=== PATIENT | female | born 1985 | race Caucasian/White ===

== ENCOUNTER 2017-01-10 16:23 | Emergency (ER) | payer OTHER ==
[~2017-01-10] VITALS: Ht 162.6 cm; Wt 49.0 kg
[2017-01-10] MEDS ORDERED: LORazepam Inj 2mg/ml 1ml IV ONE (17:00)
[2017-01-10 17:05] VITALS: BP 123/86
[2017-01-10] MEDS ORDERED: LORazepam Inj 2mg/ml 1ml IM ONE (17:30)
[2017-01-10] MEDS ORDERED: ATIVAN1 MG ORAL (17:37)
[2017-01-10] MEDS ORDERED: ZOFRAN ODT4 MG ORAL (17:37)
[2017-01-10 18:06] VITALS: BP 120/78
--- NOTE | 2017-01-10 18:09 | Emergency Room Report ---
History of Present Illness General Chief Complaint: General Complaint Source: Patient Present Illness HPI 31-year-old female presents ED complaining of feeling and states she is having withdrawal symptoms. States that she is a recovering alcoholic she drank alcohol for the last several days. Patient states she feels depressed because of the bad break up. Denies any suicidal or homicidal ideation. Admits to alcohol use only. Denies any drug use. Patient states she also feels very anxious. Normally takes Prozac and trazodone. No other aggravating or relieving factors. Denies any other associated symptoms Allergies: Coded Allergies: AMOXICILLIN (Verified Allergy, Unknown, 01/10/17) PENICILLINS (Verified Allergy, Unknown, 01/10/17) Patient History Past Medical History: psych hx Past Surgical History: none Pertinent Family History: none Social History: Reports: alcohol use, Denies: smoking, drug use Last Menstrual Period: 12/24/16 Now: No Immunizations: UTD Reviewed Nursing Documentation: PMH: Agreed, PSxH: Agreed Nursing Documentation-PMH Hx Cardiac Problems: No Hx Hypertension: No Hx Pacemaker: No Hx Asthma: No Hx COPD: No Hx Diabetes: No Hx Cancer: No Hx Gastrointestinal Problems: No Hx Dialysis: No History Of Psychiatric Problem: Yes - anxiety, panic disorder Hx Neurological Problems: No Hx Cerebrovascular Accident: No Hx Seizures: No Review of Systems All Other Systems: negative except mentioned in HPI Physical Exam Vital Signs Date Time Temp Pulse Resp B/P (MAP) Pulse Ox O2 Delivery O2 Flow Rate FiO2 01/10/17 16:32 98.1 98 22 123/86 100 Sp02 EP Interpretation: reviewed, normal General Appearance: no apparent distress, alert, GCS 15, non-toxic Head: normocephalic, atraumatic Eyes: bilateral eye normal inspection, bilateral eye PERRL ENT: hearing grossly normal, normal pharynx, no angioedema, normal voice Neck: full range of motion, supple/symm/no masses Respiratory: chest non-tender, lungs clear, normal breath sounds, speaking full sentences Cardiovascular #1: regular rate, rhythm, no edema Cardiovascular #2: 2+ carotid (R), 2+ carotid (L), 2+ radial (R), 2+ radial (L) , 2+ dorsalis pedis (R), 2+ dorsalis pedis (L) Gastrointestinal: normal bowel sounds, non tender, soft, non-distended, no guarding, no rebound Rectal: deferred Genitourinary: normal inspection, no CVA tenderness Musculoskeletal: back normal, gait/station normal, normal range of motion, non- tender Neurologic: alert, oriented x3, responsive, motor strength/tone normal, sensory intact, speech normal Psychiatric: judgement/insight normal, memory normal, depressed affect, anxious Reflexes: 3+ bicep (R), 3+ bicep (L), 3+ tricep (R), 3+ tricep (L), 3+ knee (R) , 3+ knee (L) Skin: normal color, no rash, warm/dry, well hydrated Lymphatic: no adenopathy Medical Decision Making Diagnostic Impression: Primary Impression: Alcohol withdrawal Qualified Codes: F10.239 - Alcohol dependence with withdrawal, unspecified Additional Impression: Anxiety ER Course Hospital Course 31-year-old female presents ED complaining of anxiety, shaking. Chronic history of alcohol use Differential diagnoses include: Alcohol intoxication, drug abuse, opioid withdrawal, alcohol withdrawal, dehydration, drug seeking behavior Clinical course Patient placed on stretcher. On registered public surveyor. After initial history and physical I ordered labs, IV fluids, Ativan Patient then refused IV access. Agreed to IM Ativan and ODT zofran On reassessment patient states she feels better. No signs of DTs or withdrawal. Vital stable i. I feel this is a highly complex case requiring extensive working including EKG/Rhythm strip, Xray/CT/US, Blood/urine lab work, repeat exams while in ED, and administration of strong opiates/narcotics for pain control, admission to hospital or close patient follow up. Diagnosis - alcohol withdrawal, anxiety Stable and discharged to home with prescription for ativan, zofran. Followup with PMD. Return to ED if symptoms recur or worsen Last Vital Signs Date Time Temp Pulse Resp B/P (MAP) Pulse Ox O2 Delivery O2 Flow Rate FiO2 01/10/17 17:05 98.1 22 123/86 100 01/10/17 16:32 98 Status: improved Disposition: HOME, SELF-CARE Condition: Stable Scripts Ondansetron Odt* (ZOFRAN ODT*) 4 Mg Tab.rapdis 4 MG ORAL Q6H Y for Nausea & Vomiting, #30 TAB 0 Refills Prov: WILFREDO BAIN M.D. 01/10/17 Lorazepam* (ATIVAN*) 1 Mg Tablet 1 MG ORAL THREE TIMES A DAY, #10 TAB Prov: WILFREDO BAIN M.D. 01/10/17 Patient Instructions: Alcohol Withdrawal WILFREDO BAIN M.D. Jan 10, 2017 18:09
--- NOTE | 2017-01-11 15:29 | Cardiology Report ---
APPROVED REPORT EKG Measurement Heart [id number] [place] [id number] Sinus tachycardia with short AL Right atrial enlargement Borderline ECG
== END 2017-01-10 17:50 | disposition home or self-care (01) ==
LOC: EMR 16:51
DX: F10.239 Alcohol dependence with withdrawal, unspecified (principal); F41.9 Anxiety disorder, unspecified; Z88.0 Allergy status to penicillin
CPT/HCPCS: 80307; 81025; 93005; 96372; 99284

== ENCOUNTER 2017-01-20 09:36 | Emergency (ER) | payer OTHER ==
[~2017-01-20] VITALS: Ht 162.6 cm; Wt 49.9 kg
[~2017-01-20 09:36] MED LIST: ATIVAN1 MG ORAL; ZOFRAN ODT4 MG ORAL
[2017-01-20 09:49] VITALS: BP 129/60
--- NOTE | 2017-01-20 09:57 | Emergency Room Report ---
History of Present Illness General Chief Complaint: General Complaint Source: Patient Present Illness HPI Patient is a 31-year-old female presented after increased palpitations and anxiety. Patient had prior history of alcohol abuse. She reports having taken and a half a milligram of Ativan without improvement. Patient states that she had prior history of alcohol abuse and had her last drink yesterday approximately 3 PM Allergies: Coded Allergies: AMOXICILLIN (Verified Allergy, Unknown, 01/10/17) PENICILLINS (Verified Allergy, Unknown, 01/10/17) Patient History Reviewed Nursing Documentation: PMH: Agreed, PSxH: Agreed Nursing Documentation-PMH Hx Cardiac Problems: No Hx Hypertension: No Hx Pacemaker: No Hx Asthma: No Hx COPD: No Hx Diabetes: No Hx Cancer: No Hx Gastrointestinal Problems: No Hx Dialysis: No History Of Psychiatric Problem: Yes - ANXIETY Hx Neurological Problems: No Hx Cerebrovascular Accident: No Hx Seizures: No Review of Systems All Other Systems: negative except mentioned in HPI Physical Exam Vital Signs Date Time Temp Pulse Resp B/P (MAP) Pulse Ox O2 Delivery O2 Flow Rate FiO2 01/20/17 09:42 97.9 129 20 122/73 99 Room Air Sp02 EP Interpretation: reviewed, normal General Appearance: normal inspection, well appearing, no apparent distress, alert, GCS 15 Head: atraumatic ENT: normal ENT inspection, hearing grossly normal, normal voice Neck: normal inspection, full range of motion, supple, no bony tend Respiratory: normal inspection, lungs clear, normal breath sounds, no respiratory distress, no retraction, no wheezing Cardiovascular #1: no edema, tachycardia Gastrointestinal: normal inspection, normal bowel sounds, non tender, soft, no guarding, no hernia Genitourinary: no CVA tenderness Musculoskeletal: normal inspection, back normal, normal range of motion Neurologic: normal inspection, alert, oriented x3, responsive, raveler III-XII nml as tested, speech normal, other - tremulousness Psychiatric: normal inspection, judgement/insight normal, mood/affect normal Skin: normal inspection, normal color, no rash Medical Decision Making Diagnostic Impression: Primary Impression: Alcohol withdrawal ER Course Patient presented for anxiety. Differential diagnosis included was not limited to arrhythmia, PVCs, SVT, V. tach, pulmonary embolism, alcohol withdrawal among others.Because of complexity of patient's case laboratory testing and imaging studies were ordered. The patient was noted to have the appearance of alcohol withdrawal. Patient was given IM Ativan. The patient was noted to have improvement in her symptoms. Patient stated she wanted to leave despite tachycardia. The patient stated that she needed to go to work. The patient was advised to not drive or operate heavy machinery. The patient is advised to follow up with primary care doctor in 1-2 days. Patient is advised to return if any worsening condition or if any changes in status that are concerning. Last Vital Signs Date Time Temp Pulse Resp B/P (MAP) Pulse Ox O2 Delivery O2 Flow Rate FiO2 01/20/17 09:49 97.9 134 18 129/60 100 Room Air Status: improved Disposition: HOME, SELF-CARE Condition: Stable Scripts Chlordiazepoxide Hcl* (LIBRIUM*) 10 Mg Capsule 10 MG ORAL THREE TIMES A DAY, #15 CAP 0 Refills Prov: Joe Roy 01/20/17 Joe Roy Jan 20, 2017 09:57
[2017-01-20] MEDS ORDERED: LORazepam Inj 2mg/ml 1ml IV ONE (10:00)
[2017-01-20] MEDS ORDERED: LORazepam Inj 2mg/ml 1ml IM ONE (10:00)
[2017-01-20] MEDS ORDERED: Thiamine HCl 100 MG in D5W 55 ML IVPB ONE (10:00)
[2017-01-20 10:22] LABS: APPEARANCE,URINE CLOUDY; KETONES,URINE 4+ (NEGATIVE); LEUKOCYTE ESTERASE ,URINE NEGATIVE (NEGATIVE); NITRITE,URINE NEGATIVE (NEGATIVE); PH,URINE 6 (4.5-8.0); PROTEIN,URINE 2+ (NEGATIVE); UROBILINOGEN,URINE NORMAL MG/DL (0.0-1.0)
[2017-01-20 10:27] LABS: BASOPHILS % (AUTO) 1.7 % (0.0-2.0); EOSINOPHILS % (AUTO) 0.1 % (0.0-3.0); LYMPHOCYTES % (AUTO) 16.4 % (20.0-45.0); MEAN CORPUSCULAR HEMOGLOBIN 32.9 PG (27.0-31.0); MEAN CORPUSCULAR HGB CONC 33.5 G/DL (32.0-36.0); MEAN CORPUSCULAR VOLUME 98 FL (80-99); MEAN PLATELET VOLUME 5.1 FL (6.5-10.1); MONOCYTES % (AUTO) 8.8 % (1.0-10.0); NEUTROPHILS % (AUTO) 72.9 % (45.0-75.0); PLATELET COUNT 324 K/UL (150-450); RED BLOOD COUNT 4.84 M/UL (4.20-5.40); RED CELL DISTRIBUTION WIDTH 11.3 % (11.6-14.8); WHITE BLOOD COUNT 10.7 K/UL (4.8-10.8)
[2017-01-20] MEDS ORDERED: LIBRIUM10 MG ORAL (10:30)
[2017-01-20 10:32] LABS: SQUAMOUS EPITHELIAL CELL,UR MODERATE /LPF (NONE/OCC); WBC,URINE 0-2 /HPF (0 - 2)
[2017-01-20 10:33] LABS: BACTERIA,URINE OCCASIONAL /HPF; MUCUS,URINE MODERATE /LPF (NONE/OCC)
[2017-01-20 10:34] VITALS: BP 118/67
[2017-01-20 10:39] LABS: ANION GAP 19 mmol/L (5-15); CALCIUM 8.8 MG/DL (8.5-10.1); CARBON DIOXIDE 21 MMOL/L (21-32); CHLORIDE 97 MMOL/L (98-107); GLOMERULAR FILTRATION RATE > 60 mL/min (>60); POTASSIUM 3.7 MMOL/L (3.5-5.1); SODIUM 136 MMOL/L (136-145)
[2017-01-20 10:45] LABS: ALANINE AMINOTRANSFERASE 54 U/L (12-78); ALBUMIN/GLOBULIN RATIO 1.2 (1.0-2.7); ASPARTATE AMINO TRANSFERASE 60 U/L (15-37); TOTAL PROTEIN 8.1 G/DL (6.4-8.2)
--- NOTE | 2017-01-22 17:18 | Cardiology Report ---
APPROVED REPORT EKG Measurement Heart [id number] [place] [id number] Sinus tachycardia Otherwise normal ECG
== END 2017-01-20 10:52 | disposition home or self-care (01) ==
LOC: EMR 10:35
DX: F10.239 Alcohol dependence with withdrawal, unspecified (principal); R00.2 Palpitations; F41.9 Anxiety disorder, unspecified; Z88.0 Allergy status to penicillin
CPT/HCPCS: 36415; 80053; 81003; 81025; 85025; 93005; 96372; 99283

== ENCOUNTER 2017-04-20 10:00 | Emergency (ER) | payer OTHER ==
[~2017-04-20] VITALS: Ht 162.6 cm; Wt 47.6 kg
[2017-04-20 10:00] VITALS: BP 124/86
[~2017-04-20 10:00] MED LIST changes: +LIBRIUM10 MG ORAL
[2017-04-20] MEDS ORDERED: LORazepam Inj 2mg/ml 1ml IV ONE (10:15)
[2017-04-20] MEDS ORDERED: Thiamine HCl 100 MG in D5W 55 ML IVPB ONE (10:15)
--- NOTE | 2017-04-20 10:17 | Emergency Room Report ---
History of Present Illness General Chief Complaint: General Complaint Source: Patient Present Illness HPI Patient is a 31-year-old female presented after increased anxiety and palpitations. Patient was recent heavy alcohol use. She states that she had previously been had taking multiple psychiatric medications. She reported some epigastric abdominal pain. She denies any fever. She reported having trace amount of hematemesis. Allergies: Coded Allergies: AMOXICILLIN (Verified Allergy, Unknown, 01/10/17) PENICILLINS (Verified Allergy, Unknown, 01/10/17) Patient History Past Medical History: see triage record Now: No Reviewed Nursing Documentation: PMH: Agreed, PSxH: Agreed Nursing Documentation-PMH Hx Cardiac Problems: No Hx Hypertension: No Hx Pacemaker: No Hx Asthma: No Hx COPD: No Hx Diabetes: No Hx Cancer: No Hx Gastrointestinal Problems: No Hx Dialysis: No History Of Psychiatric Problem: Yes - anxiety Hx Neurological Problems: No Hx Cerebrovascular Accident: No Hx Seizures: No Review of Systems All Other Systems: negative except mentioned in HPI Physical Exam Vital Signs Date Time Temp Pulse Resp B/P (MAP) Pulse Ox O2 Delivery O2 Flow Rate FiO2 04/20/17 09:54 98.0 125 20 112/82 99 Room Air 98.1 Sp02 EP Interpretation: reviewed, normal General Appearance: normal inspection, well appearing, no apparent distress, alert, GCS 15 Head: atraumatic ENT: normal ENT inspection, hearing grossly normal, normal voice Neck: normal inspection, full range of motion, supple, no bony tend Respiratory: normal inspection, lungs clear, normal breath sounds, no respiratory distress, no retraction, no wheezing Cardiovascular #1: regular rate, rhythm, no edema Gastrointestinal: normal inspection, normal bowel sounds, non tender, soft, no guarding, no hernia Genitourinary: no CVA tenderness Musculoskeletal: normal inspection, back normal, normal range of motion Neurologic: normal inspection, alert, oriented x3, responsive, food sampler III-XII nml as tested, speech normal Psychiatric: normal inspection, judgement/insight normal, mood/affect normal Skin: normal inspection, normal color, no rash Medical Decision Making Diagnostic Impression: Primary Impression: Alcohol withdrawal ER Course Patient presented for abdominal pain. Differential diagnoses included ischemic bowel, appendicitis, perforated viscus, abdominal aortic aneurysm, inferior myocardial infarction, viral gastroenteritis. Because of complexity of patient' s case laboratory testing and imaging studies were ordered.Laboratory studies are notable for mildly elevated white blood count. Patient was noted to be negative for alcohol. Patient given IV Ativan as well as oral Ativan with improvement. The patient is advised to follow up with primary care doctor in 1 -2 days. Patient is advised to return if any worsening condition or if any changes in status that are concerning. This report is dictated with [employer] software which may occasionally lead to discrepancies related to use of this software. Labs Test 04/20/17 10:45 04/20/17 14:00 White Blood Count 14.6 K/UL (4.8-10.8) Red Blood Count 4.89 M/UL (4.20-5.40) Hemoglobin 16.2 G/DL (12.0-16.0) Hematocrit 46.9 % (37.0-47.0) Mean Corpuscular Volume 96 FL (80-99) Mean Corpuscular Hemoglobin 33.1 PG (27.0-31.0) Mean Corpuscular Hemoglobin Concent 34.4 G/DL (32.0-36.0) Red Cell Distribution Width 10.8 % (11.6-14.8) Platelet Count 431 K/UL (150-450) Mean Platelet Volume 5.2 FL (6.5-10.1) Neutrophils (%) (Auto) % (45.0-75.0) Lymphocytes (%) (Auto) % (20.0-45.0) Monocytes (%) (Auto) % (1.0-10.0) Eosinophils (%) (Auto) % (0.0-3.0) Basophils (%) (Auto) % (0.0-2.0) Differential Total Cells Counted 100 Neutrophils % (Manual) 86 % (45-75) Lymphocytes % (Manual) 12 % (20-45) Monocytes % (Manual) 2 % (1-10) Eosinophils % (Manual) 0 % (0-3) Basophils % (Manual) 0 % (0-2) Band Neutrophils 0 % (0-8) Platelet Estimate Adequate Platelet Morphology Normal Red Blood Cell Morphology Normal Prothrombin Time 9.4 SEC (9.30-11.50) Prothromb Time International Ratio 0.9 (0.9-1.1) Activated Partial Thromboplast Time 25 SEC (23-33) Lipase 103 U/L (73-393) Serum Alcohol < 2 mg/dL Sodium Level 136 MMOL/L (136-145) Potassium Level 4.8 MMOL/L (3.5-5.1) Chloride Level 104 MMOL/L (98-107) Carbon Dioxide Level 21 MMOL/L (21-32) Anion Gap 11 mmol/L (5-15) Blood Urea Nitrogen 17 mg/dL (7-18) Creatinine 0.8 MG/DL (0.55-1.30) Estimat Glomerular Filtration Rate > 60 mL/min (>60) Glucose Level 152 MG/DL (74-106) Calcium Level 7.8 MG/DL (8.5-10.1) Total Bilirubin 0.7 MG/DL (0.2-1.0) Aspartate Amino Transf (AST/SGOT) 31 U/L (15-37) Alanine Aminotransferase (ALT/SGPT) 23 U/L (12-78) Alkaline Phosphatase 35 U/L (46-116) Total Protein 6.4 G/DL (6.4-8.2) Albumin 3.4 G/DL (3.4-5.0) Globulin 3.0 g/dL Albumin/Globulin Ratio 1.1 (1.0-2.7) Last Vital Signs Date Time Temp Pulse Resp B/P (MAP) Pulse Ox O2 Delivery O2 Flow Rate FiO2 04/20/17 10:00 98.1 19 124/86 100 Room Air 98.1 04/20/17 09:54 125 Status: improved Disposition: HOME, SELF-CARE Condition: Stable Scripts Lorazepam* (ATIVAN*) 1 Mg Tablet 1 MG ORAL THREE TIMES A DAY, #14 TAB Prov: Joe Roy 04/20/17 Joe Roy Apr 20, 2017 10:17
[2017-04-20] MEDS ORDERED: Thiamine HCl 100mg/ml 2 ml Inj ONE (10:19)
[2017-04-20 11:04] LABS: HEMATOCRIT 46.9 % (37.0-47.0); HEMOGLOBIN 16.2 G/DL (12.0-16.0); MEAN CORPUSCULAR VOLUME 96 FL (80-99); PLATELET COUNT 431 K/UL (150-450); RED BLOOD COUNT 4.89 M/UL (4.20-5.40); RED CELL DISTRIBUTION WIDTH 10.8 % (11.6-14.8); WHITE BLOOD COUNT 14.6 K/UL (4.8-10.8)
[2017-04-20 11:09] LABS: ANION GAP 18 mmol/L (5-15); BLOOD UREA NITROGEN 17 mg/dL (7-18); CALCIUM 9.1 MG/DL (8.5-10.1); CARBON DIOXIDE 19 MMOL/L (21-32); CHLORIDE 98 MMOL/L (98-107); POTASSIUM 5.8 MMOL/L (3.5-5.1); SODIUM 135 MMOL/L (136-145)
[2017-04-20 11:10] LABS: INR 0.9 (0.9-1.1)
[2017-04-20 11:14] LABS: ALANINE AMINOTRANSFERASE 28 U/L (12-78); ALBUMIN 4.6 G/DL (3.4-5.0); ALBUMIN/GLOBULIN RATIO 1.1 (1.0-2.7); ALKALINE PHOSPHATASE 45 U/L (46-116); ASPARTATE AMINO TRANSFERASE 36 U/L (15-37); BILIRUBIN,TOTAL 0.8 MG/DL (0.2-1.0)
[2017-04-20 11:50] VITALS: BP 106/64
[2017-04-20 14:18] LABS: ANION GAP 11 mmol/L (5-15); BLOOD UREA NITROGEN 17 mg/dL (7-18); CALCIUM 7.8 MG/DL (8.5-10.1); CARBON DIOXIDE 21 MMOL/L (21-32); CHLORIDE 104 MMOL/L (98-107); CREATININE 0.8 MG/DL (0.55-1.30); POTASSIUM 4.8 MMOL/L (3.5-5.1); SODIUM 136 MMOL/L (136-145)
[2017-04-20 14:23] LABS: ALANINE AMINOTRANSFERASE 23 U/L (12-78); ALBUMIN 3.4 G/DL (3.4-5.0); ALBUMIN/GLOBULIN RATIO 1.1 (1.0-2.7); ALKALINE PHOSPHATASE 35 U/L (46-116); ASPARTATE AMINO TRANSFERASE 31 U/L (15-37); BILIRUBIN,TOTAL 0.7 MG/DL (0.2-1.0)
[2017-04-20 15:20] VITALS: BP 97/48
[2017-04-20] MEDS ORDERED: ATIVAN1 MG ORAL (15:23)
[2017-04-20] MEDS ORDERED: LORazepam 1mg tab ORAL ONE (15:30)
[2017-04-20 15:37] VITALS: BP 97/48
== END 2017-04-20 15:39 | disposition home or self-care (01) ==
LOC: EDBD 10:00 → EMR 10:27
DX: F10.239 Alcohol dependence with withdrawal, unspecified (principal)
CPT/HCPCS: 36415; 80053; 83690; 85007; 85025; 85610; 85730; 86850; 86900; 86901; 96374; 96375; 99284; G0480; J2405; S0028; 80329

== ENCOUNTER 2017-04-24 05:58 | Inpatient (IN) | payer OTHER ==
[~2017-04-24] VITALS: Ht 162.6 cm; Wt 47.6 kg
[2017-04-24 06:17] VITALS: BP 121/76
[2017-04-24] MEDS ORDERED: DiphenhydrAMINE 50mg/ml Inj IVP ONE (06:30)
[2017-04-24] MEDS ORDERED: LORazepam Inj 2mg/ml 1ml IV ONE (06:30)
[2017-04-24 07:05] LABS: ANION GAP 12 mmol/L (5-15); BLOOD UREA NITROGEN 11 mg/dL (7-18); CALCIUM 9.4 MG/DL (8.5-10.1); CARBON DIOXIDE 26 MMOL/L (21-32); CHLORIDE 98 MMOL/L (98-107); CREATININE 0.8 MG/DL (0.55-1.30); POTASSIUM 3.8 MMOL/L (3.5-5.1); SODIUM 136 MMOL/L (136-145)
[2017-04-24 07:09] LABS: ALANINE AMINOTRANSFERASE 73 U/L (12-78); ALBUMIN 4.5 G/DL (3.4-5.0); ALBUMIN/GLOBULIN RATIO 1.1 (1.0-2.7); ALKALINE PHOSPHATASE 46 U/L (46-116); ASPARTATE AMINO TRANSFERASE 43 U/L (15-37); BILIRUBIN,TOTAL 0.6 MG/DL (0.2-1.0)
[2017-04-24 07:19] LABS: HEMATOCRIT 43.5 % (37.0-47.0); HEMOGLOBIN 15.3 G/DL (12.0-16.0); MEAN CORPUSCULAR VOLUME 95 FL (80-99); PLATELET COUNT 201 K/UL (150-450); RED BLOOD COUNT 4.57 M/UL (4.20-5.40); RED CELL DISTRIBUTION WIDTH 10.7 % (11.6-14.8); WHITE BLOOD COUNT 9.1 K/UL (4.8-10.8)
[2017-04-24 07:38] VITALS: BP 109/62
--- NOTE | 2017-04-24 08:10 | Emergency Room Report ---
History of Present Illness General Chief Complaint: Vomiting Source: Patient Present Illness HPI Patient was here recently with reports of nausea vomiting Patient had sensation of alcohol withdrawal symptoms She had been treated and did better however outpatient attempt has failed patient reports inability to take any oral intake for the last 24 hours Multiple episodes of vomiting epigastric discomfort Denies any chest pain or shortness of breath she does have some palpitation sensation Feels jittery and shaky Denies any diarrhea Denies any fall or trauma Patient's significant other at bedside reports that she has vomited almost every 20 minutes for the last 1 day Allergies: Coded Allergies: AMOXICILLIN (Verified Allergy, Unknown, 01/10/17) PENICILLINS (Verified Allergy, Unknown, 01/10/17) Patient History Past Medical History: see triage record Pertinent Family History: none Last Menstrual Period: last week Now: No Reviewed Nursing Documentation: PMH: Agreed, PSxH: Agreed Nursing Documentation-PMH Hx Cardiac Problems: No Hx Hypertension: No Hx Pacemaker: No Hx Asthma: No Hx COPD: No Hx Diabetes: No Hx Cancer: No Hx Gastrointestinal Problems: No Hx Dialysis: No Hx Neurological Problems: No Hx Cerebrovascular Accident: No Hx Seizures: No Review of Systems All Other Systems: negative except mentioned in HPI Physical Exam Vital Signs Date Time Temp Pulse Resp B/P (MAP) Pulse Ox O2 Delivery O2 Flow Rate FiO2 04/24/17 06:01 98.7 112 18 131/86 99 Room Air 98.8 Sp02 EP Interpretation: reviewed, normal General Appearance: mild distress - Appears uncomfortable Head: normocephalic, atraumatic Eyes: bilateral eye PERRL, bilateral eye EOMI ENT: hearing grossly normal, normal pharynx, TMs + canals normal, uvula midline Neck: full range of motion, supple, no meningismus, no bony tend Respiratory: lungs clear, normal breath sounds, no rhonchi, no respiratory distress, no retraction, no accessory muscle use Cardiovascular #1: normal peripheral pulses, regular rate, rhythm, no edema, no gallop, no JVD, no murmur Gastrointestinal: normal bowel sounds, soft, no mass, no organomegaly, non- distended, no guarding, no hernia, no pulsatile mass, no rebound, tenderness - Epigastric Genitourinary: no CVA tenderness Musculoskeletal: normal inspection Neurologic: oriented x3, responsive, research assistant professor III-XII nml as tested, motor strength/ tone normal, sensory intact Psychiatric: mood/affect normal Skin: palpation normal, other - Poor skin turgor Lymphatic: normal inspection, no adenopathy Medical Decision Making Diagnostic Impression: Primary Impression: Alcohol withdrawal Additional Impression: Vomiting ER Course Multiple differentials considered patient's White blood for count was mildly elevated on last presentation Urine was -2 days ago and therefore this was not repeated Patient has done better after acute intervention however still feels uneasy Along with increased nausea Patient required repeat medication at this time given the failed outpatient process and continued discomfort will be admitted for further inpatient care Labs Test 04/24/17 06:33 White Blood Count 9.1 K/UL (4.8-10.8) Red Blood Count 4.57 M/UL (4.20-5.40) Hemoglobin 15.3 G/DL (12.0-16.0) Hematocrit 43.5 % (37.0-47.0) Mean Corpuscular Volume 95 FL (80-99) Mean Corpuscular Hemoglobin 33.6 PG (27.0-31.0) Mean Corpuscular Hemoglobin Concent 35.2 G/DL (32.0-36.0) Red Cell Distribution Width 10.7 % (11.6-14.8) Platelet Count 201 K/UL (150-450) Mean Platelet Volume 6.3 FL (6.5-10.1) Neutrophils (%) (Auto) % (45.0-75.0) Lymphocytes (%) (Auto) % (20.0-45.0) Monocytes (%) (Auto) % (1.0-10.0) Eosinophils (%) (Auto) % (0.0-3.0) Basophils (%) (Auto) % (0.0-2.0) Sodium Level 136 MMOL/L (136-145) Potassium Level 3.8 MMOL/L (3.5-5.1) Chloride Level 98 MMOL/L (98-107) Carbon Dioxide Level 26 MMOL/L (21-32) Anion Gap 12 mmol/L (5-15) Blood Urea Nitrogen 11 mg/dL (7-18) Creatinine 0.8 MG/DL (0.55-1.30) Estimat Glomerular Filtration Rate > 60 mL/min (>60) Glucose Level 139 MG/DL (74-106) Calcium Level 9.4 MG/DL (8.5-10.1) Total Bilirubin 0.6 MG/DL (0.2-1.0) Aspartate Amino Transf (AST/SGOT) 43 U/L (15-37) Alanine Aminotransferase (ALT/SGPT) 73 U/L (12-78) Alkaline Phosphatase 46 U/L (46-116) Total Protein 8.6 G/DL (6.4-8.2) Albumin 4.5 G/DL (3.4-5.0) Globulin 4.1 g/dL Albumin/Globulin Ratio 1.1 (1.0-2.7) Lipase 157 U/L (73-393) Rhythm Strip Diag. Results EP Interpretation: yes Rate: 88 Rhythm: NSR, no PVC's, no ectopy Last Vital Signs Date Time Temp Pulse Resp B/P (MAP) Pulse Ox O2 Delivery O2 Flow Rate FiO2 04/24/17 07:38 98.8 72 24 109/62 97 Room Air 98.8 Status: improved Disposition: ADMITTED INPATIENT Condition: Serious Referrals: NOT CHOSEN MIGUELANGEL/,REFERRING (PCP) RAMESH BERMAN D.O. Apr 24, 2017 08:10
[2017-04-24 09:00] VITALS: BP 110/63
[2017-04-24 10:20] VITALS: BP 125/71
[2017-04-24] MEDS ORDERED: DiphenhydrAMINE 50mg/ml Inj IVP PRN (11:00)
[2017-04-24] MEDS ORDERED: LORazepam Inj 2mg/ml 1ml IV PRN (11:00)
[2017-04-24] MEDS ORDERED: chlordiazePOXIDE 25mg Cap ORAL PRN (11:00)
[2017-04-24] MEDS ORDERED: Thiamine HCl 100 MG, Folic Acid 1 MG, Magnesium Sulfate 2,000 MG, Multivitamin - 12 Inj... IV SCH ×5 (11:45)
--- NOTE | 2017-04-24 11:54 | Neurology Progress Note ---
Objective Physical Exam Last Vital Signs Date Time Temp Pulse Resp B/P (MAP) Pulse Ox O2 Delivery O2 Flow Rate FiO2 04/24/17 10:20 98.6 97 18 125/71 97 Room Air 98.6 Laboratory Tests Test 04/24/17 06:33 White Blood Count 9.1 K/UL (4.8-10.8) Red Blood Count 4.57 M/UL (4.20-5.40) Hemoglobin 15.3 G/DL (12.0-16.0) Hematocrit 43.5 % (37.0-47.0) Mean Corpuscular Volume 95 FL (80-99) Mean Corpuscular Hemoglobin 33.6 PG (27.0-31.0) H Mean Corpuscular Hemoglobin Concent 35.2 G/DL (32.0-36.0) Red Cell Distribution Width 10.7 % (11.6-14.8) L Platelet Count 201 K/UL (150-450) Mean Platelet Volume 6.3 FL (6.5-10.1) L Neutrophils (%) (Auto) % (45.0-75.0) Lymphocytes (%) (Auto) % (20.0-45.0) Monocytes (%) (Auto) % (1.0-10.0) Eosinophils (%) (Auto) % (0.0-3.0) Basophils (%) (Auto) % (0.0-2.0) Differential Total Cells Counted 100 Neutrophils % (Manual) 86 % (45-75) H Lymphocytes % (Manual) 13 % (20-45) L Monocytes % (Manual) 1 % (1-10) Eosinophils % (Manual) 0 % (0-3) Basophils % (Manual) 0 % (0-2) Band Neutrophils 0 % (0-8) Platelet Estimate Adequate Platelet Morphology Normal Red Blood Cell Morphology Normal Sodium Level 136 MMOL/L (136-145) Potassium Level 3.8 MMOL/L (3.5-5.1) Chloride Level 98 MMOL/L (98-107) Carbon Dioxide Level 26 MMOL/L (21-32) Anion Gap 12 mmol/L (5-15) Blood Urea Nitrogen 11 mg/dL (7-18) Creatinine 0.8 MG/DL (0.55-1.30) Estimat Glomerular Filtration Rate > 60 mL/min (>60) Glucose Level 139 MG/DL (74-106) H Calcium Level 9.4 MG/DL (8.5-10.1) Total Bilirubin 0.6 MG/DL (0.2-1.0) Aspartate Amino Transf (AST/SGOT) 43 U/L (15-37) H Alanine Aminotransferase (ALT/SGPT) 73 U/L (12-78) Alkaline Phosphatase 46 U/L (46-116) Total Protein 8.6 G/DL (6.4-8.2) H Albumin 4.5 G/DL (3.4-5.0) Globulin 4.1 g/dL Albumin/Globulin Ratio 1.1 (1.0-2.7) Lipase 157 U/L (73-393) Impression/Recommendations Problems: (1) Alcohol withdrawal (2) ETOH abuse (3) Depressed affect (4) Vomiting Status: unchanged Recommendations #[id number] psych and GI f/u HEIDI CHOUDHARY Apr 24, 2017 11:54
[2017-04-24 12:00] VITALS: BP 113/69
[2017-04-24] MEDS ORDERED: chlordiazePOXIDE 25mg Cap ORAL SCH (12:30)
[2017-04-24] MEDS ORDERED: Folic Acid 1 MG, Magnesium Sulfate 2,000 MG, Multivitamin - 12 Injection 10 ML in NS w/... IV SCH (13:00)
[2017-04-24] MEDS ORDERED: Thiamine HCl 100 MG in NS 55 ML IVPB SCH (13:00)
[2017-04-24 13:18] LABS: AMYLASE 50 U/L (25-115)
[2017-04-24 13:21] LABS: CHOLESTEROL 116 MG/DL (< 200); HDL CHOLESTEROL 89 MG/DL (40-60); TRIGLYCERIDES 26 MG/DL (30-150)
--- NOTE | 2017-04-24 15:49 | Consultation ---
History of Present Illness General Chief Complaint: Vomiting Present Illness HPI the pt with hx of alcohol dependence who is here due to withdrawal the pt endorses anxiety and tachy c as well as n/v. the pt stated that she was recently discharged from inpt rehab and did not follow up with he psychiatrist and stopped all her meds and "self medicate with alcohol" the pt is not suicidal. Allergies: Coded Allergies: AMOXICILLIN (Verified Allergy, Unknown, 01/10/17) PENICILLINS (Verified Allergy, Unknown, 01/10/17) Medication History Scheduled Chlordiazepoxide Hcl* (Librium*), 10 MG ORAL THREE TIMES A DAY Lorazepam* (Ativan*), 1 MG ORAL THREE TIMES A DAY Lorazepam* (Ativan*), 1 MG ORAL THREE TIMES A DAY Scheduled PRN Ondansetron Odt* (Zofran Odt*), 4 MG ORAL Q6H PRN for Nausea & Vomiting Patient History History Provided By: Patient, Significant Other, PMD Healthcare decision maker Resuscitation status Advanced Directive on File Past Medical/Surgical History Past Medical/Surgical History: (1) Depressed affect (2) Vomiting (3) Alcohol withdrawal Review of Systems Psychiatric: Reports: prior hx, anxiety, depressed feelings Physical Exam General Appearance: no apparent distress, alert, agitated Neurologic: alert, oriented x 3, responsive, depressed affect Last 24 Hour Vital Signs Date Time Temp Pulse Resp B/P (MAP) Pulse Ox O2 Delivery O2 Flow Rate FiO2 04/24/17 12:00 99.0 60 18 113/69 98 Room Air 99.0 04/24/17 10:20 98.6 97 18 125/71 97 Room Air 98.6 04/24/17 10:07 98.2 70 26 110/63 95 Room Air 98.2 04/24/17 09:00 98.2 70 26 110/63 95 Room Air 98.2 04/24/17 07:38 98.8 72 24 109/62 97 Room Air 98.8 04/24/17 06:17 98.8 75 20 121/76 99 Room Air 98.8 04/24/17 06:01 98.7 112 18 131/86 99 Room Air 98.8 Laboratory Tests Test 04/24/17 06:33 04/24/17 12:20 White Blood Count 9.1 K/UL (4.8-10.8) Red Blood Count 4.57 M/UL (4.20-5.40) Hemoglobin 15.3 G/DL (12.0-16.0) Hematocrit 43.5 % (37.0-47.0) Mean Corpuscular Volume 95 FL (80-99) Mean Corpuscular Hemoglobin 33.6 PG (27.0-31.0) H Mean Corpuscular Hemoglobin Concent 35.2 G/DL (32.0-36.0) Red Cell Distribution Width 10.7 % (11.6-14.8) L Platelet Count 201 K/UL (150-450) Mean Platelet Volume 6.3 FL (6.5-10.1) L Neutrophils (%) (Auto) % (45.0-75.0) Lymphocytes (%) (Auto) % (20.0-45.0) Monocytes (%) (Auto) % (1.0-10.0) Eosinophils (%) (Auto) % (0.0-3.0) Basophils (%) (Auto) % (0.0-2.0) Differential Total Cells Counted 100 Neutrophils % (Manual) 86 % (45-75) H Lymphocytes % (Manual) 13 % (20-45) L Monocytes % (Manual) 1 % (1-10) Eosinophils % (Manual) 0 % (0-3) Basophils % (Manual) 0 % (0-2) Band Neutrophils 0 % (0-8) Platelet Estimate Adequate Platelet Morphology Normal Red Blood Cell Morphology Normal Sodium Level 136 MMOL/L (136-145) Potassium Level 3.8 MMOL/L (3.5-5.1) Chloride Level 98 MMOL/L (98-107) Carbon Dioxide Level 26 MMOL/L (21-32) Anion Gap 12 mmol/L (5-15) Blood Urea Nitrogen 11 mg/dL (7-18) Creatinine 0.8 MG/DL (0.55-1.30) Estimat Glomerular Filtration Rate > 60 mL/min (>60) Glucose Level 139 MG/DL (74-106) H Calcium Level 9.4 MG/DL (8.5-10.1) Total Bilirubin 0.6 MG/DL (0.2-1.0) Aspartate Amino Transf (AST/SGOT) 43 U/L (15-37) H Alanine Aminotransferase (ALT/SGPT) 73 U/L (12-78) Alkaline Phosphatase 46 U/L (46-116) Total Protein 8.6 G/DL (6.4-8.2) H Albumin 4.5 G/DL (3.4-5.0) Globulin 4.1 g/dL Albumin/Globulin Ratio 1.1 (1.0-2.7) Lipase 157 U/L (73-393) 152 U/L (73-393) Hemoglobin A1c 5.4 % (4.3-6.0) Triglycerides Level 26 MG/DL (30-150) L Cholesterol Level 116 MG/DL (< 200) LDL Cholesterol 35 mg/dL (<100) HDL Cholesterol 89 MG/DL (40-60) H Cholesterol/HDL Ratio 1.3 (3.3-4.4) L Amylase Level 50 U/L (25-115) Hepatitis A IgM Antibody Pending Hepatitis B Surface Antigen Pending Hepatitis B Core IgM Antibody Pending Hepatitis C Antibody Pending Height (Feet): 5 Height (Inches): 4.00 Weight (Pounds): 105 Medications Current Medications Medications (Trade) Dose Ordered Sig/Prakash Route PRN Reason Start Time Stop Time Status Last Admin Dose Admin Acetaminophen (Tylenol) 650 mg Q4H PRN ORAL Mild Pain/Temp > 100.5 04/24/17 11:00 05/24/17 10:59 Diazepam (Valium) 10 mg BEDTIME ORAL 04/24/17 21:00 05/01/17 20:59 Diazepam (Valium) 10 mg EVERY 4 HOURS PRN ORAL For Anxiety 04/24/17 15:30 05/01/17 15:29 Diphenhydramine HCl (Benadryl) 25 mg Q6H PRN IVP Itching 04/24/17 11:00 05/24/17 10:59 Escitalopram Oxalate (Lexapro) 10 mg BEDTIME ORAL 04/24/17 21:00 05/24/17 20:59 UNV Folic Acid 1 mg/ Magnesium Sulfate 2000 mg/ Multivitamins 10 ml/Sodium Chloride 1,014.2 ml @ 125 mls/ hr Q24H IV 04/24/17 13:00 05/24/17 12:59 04/24/17 14:07 Heparin Sodium (Porcine) (Heparin 5000 units/ml) 5,000 units EVERY 12 HOURS SUBQ 04/24/17 21:00 4/8/18 20:59 Ondansetron HCl (Zofran) 4 mg Q6H PRN IVP Nausea & Vomiting 04/24/17 11:00 05/24/17 10:59 04/24/17 11:49 Pantoprazole (Protonix) 40 mg EVERY 12 HOURS ORAL 04/24/17 21:00 05/24/17 20:59 Potassium Chloride 10 meq/ Dextrose/Sodium Chloride 1,005 ml @ 100 mls/hr Q10H3M IV 04/24/17 18:30 05/24/17 18:29 Promethazine HCl (Phenergan) 25 mg Q6H PRN IM Nausea & Vomiting 04/24/17 11:00 05/24/17 10:59 Thiamine HCl 100 mg/Sodium Chloride 56 ml @ 112 mls/hr Q24H IVPB 04/24/17 13:00 05/24/17 12:59 04/24/17 14:06 Trazodone HCl (Desyrel) 100 mg BEDTIME ORAL 04/24/17 22:00 05/24/17 21:59 Assessment/Plan Status: stable Assessment/Plan alcohol depend alcohol w/d -dc trazadone -cont lexapro -dc librium -start Marty Singh M.D. Apr 24, 2017 15:49
[2017-04-24] MEDS: Potassium Chloride 10 MEQ in D5 1/2NS 1,000 ML IV SCH ×2 (18:30→23:48)
[2017-04-24 20:00] VITALS: BP 121/67
[2017-04-24] MEDS ORDERED: Heparin 5000 units/ml inj SUBQ SCH (21:00)
--- NOTE | 2017-04-24 21:15 | History and Physical Report ---
DATE OF ADMISSION: 04/24/2017 SOURCE OF INFORMATION: The patient and EMR. HISTORY OF PRESENT ILLNESS: The patient is a pleasant 31-year-old white female. She had a long history of alcoholism. The patient presented with the acute onset of nausea, vomiting and abdominal pain. The patient describes the pain in the periumbilical area with radiation to the back, associated with bilious vomit. Denies any blood in the vomitus or any diarrhea. At the time of evaluation, the patient denies any chest pain or shortness of breath. PAST SURGICAL HISTORY: Ankle fracture. MEDICATIONS: Current hospital medications including, but not limited to, promethazine, Zofran, heparin subcutaneous, chlordiazepoxide, and Librium 25 mg q.6 h. ALLERGIES: Amoxicillin and penicillin. SOCIAL HISTORY: The patient is single. She has a boyfriend. Positive for alcoholism for about 10 years, denies illicit drug abuse, denies any smoking. FAMILY HISTORY: Reviewed, noncontributory. PHYSICAL EXAMINATION: VITAL SIGNS: Blood pressure 100/60, temperature 98.2 degrees, pulse oximetry 98% on room air, respiratory rate 18, and pulse rate 70-90 HEAD AND NECK: Atraumatic and normocephalic. CHEST: Clear to auscultation. No wheezing. No crackles. HEART: S1 and S2. Regular rate and rhythm. Negative for S3. Negative for S4. ABDOMEN: Soft. No organomegaly. MUSCULOSKELETAL: No gross focal motor deficit. NEUROLOGY: The patient is awake, alert, and oriented x3. PSYCHIATRIC: Mood and affect, she is anxious. LABORATORY AND DIAGNOSTIC DATA: Lab dated 04/24/2017 shows WBC 9.1, hemoglobin 15.3, and platelets of 201. Sodium 136, potassium 3.8, BUN 11, and creatinine 0.8. AST 43. ASSESSMENT AND PLAN: 1. Acute gastritis. 2. Acute abdominal pain. 3. Alcohol independence. 4. Anxiety, depression. 5. Abnormal blood sugar. 6. Gastrointestinal and deep vein thrombosis prophylaxis. PLAN OF CARE: We will check the amylase and lipase. GI, Neurology and psychiatric are consulted. We will check hepatitis and HIV panel. Merrill Grover M.D. DR: JERICHO JOB#: [id number] CC:
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
[2017-04-24] MEDS ORDERED: TraZODone 100mg tab ORAL SCH (22:00)
[2017-04-25] VITALS: BP 118/72
[2017-04-25 08:00] VITALS: BP 125/60
--- NOTE | 2017-04-25 08:15 | General Progress Note ---
Assessment/Plan Status: stable Assessment/Plan 1. Acute gastritis. 2. Acute abdominal pain. 3. Alcohol dependence. 4. Anxiety, depression. 5. Abnormal blood sugar. 6. Gastrointestinal and deep vein thrombosis prophylaxis. Plan: Advance Diet Explained patient that why AMA is not a good option Subjective ROS Limited/Unobtainable: No Constitutional: Reports: no symptoms HEENT: Reports: no symptoms Cardiovascular: Reports: no symptoms Respiratory: Reports: no symptoms Allergies: Coded Allergies: AMOXICILLIN (Verified Allergy, Unknown, 01/10/17) PENICILLINS (Verified Allergy, Unknown, 01/10/17) Objective Last 24 Hour Vital Signs Date Time Temp Pulse Resp B/P (MAP) Pulse Ox O2 Delivery O2 Flow Rate FiO2 04/25/17 00:00 98.6 64 20 118/72 98 Room Air 98.6 04/24/17 20:00 97.9 72 22 121/67 97 Room Air 97.9 04/24/17 12:00 99.0 60 18 113/69 98 Room Air 99.0 04/24/17 10:20 98.6 97 18 125/71 97 Room Air 98.6 04/24/17 10:07 98.2 70 26 110/63 95 Room Air 98.2 04/24/17 09:00 98.2 70 26 110/63 95 Room Air 98.2 Intake and Output 04/24/17 04/25/17 19:00 07:00 Intake Total 756 ml Balance 756 ml Intake IV Total 756 ml Laboratory Tests 04/24/17 12:20: Hemoglobin A1c 5.4, Triglycerides Level 26L, Cholesterol Level 116, LDL Cholesterol 35, HDL Cholesterol 89H, Cholesterol/HDL Ratio 1.3L, Amylase Level 50, Lipase 152, Hepatitis A IgM Antibody [Pending], Hepatitis B Surface Antigen [Pending], Hepatitis B Core IgM Antibody [Pending], Hepatitis C Antibody [ Pending] 04/25/17 06:07: White Blood Count [Pending], Red Blood Count [Pending], Hemoglobin [Pending], Hematocrit [Pending], Mean Corpuscular Volume [Pending], Mean Corpuscular Hemoglobin [Pending], Mean Corpuscular Hemoglobin Concent [Pending], Red Cell Distribution Width [Pending], Platelet Count [Pending], Mean Platelet Volume [ Pending], Neutrophils (%) (Auto) [Pending], Lymphocytes (%) (Auto) [Pending], Monocytes (%) (Auto) [Pending], Eosinophils (%) (Auto) [Pending], Basophils (%) (Auto) [Pending], Sodium Level [Pending], Potassium Level [Pending], Chloride Level [Pending], Carbon Dioxide Level [Pending], Blood Urea Nitrogen [Pending], Creatinine [Pending], Estimat Glomerular Filtration Rate [Pending], Glucose Level [Pending], Calcium Level [Pending], Total Bilirubin [Pending], Aspartate Amino Transf (AST/SGOT) [Pending], Alanine Aminotransferase (ALT/SGPT) [Pending] , Alkaline Phosphatase [Pending], Total Protein [Pending], Albumin [Pending], Globulin [Pending] 04/25/17 06:30: Urine Opiates Screen [Pending], Urine Barbiturates Screen [Pending], Phencyclidine (PCP) Screen [Pending], Urine Amphetamines Screen [Pending], Urine Benzodiazepines Screen [Pending], Urine Cocaine Screen [Pending], Urine Marijuana (THC) Screen [Pending] Height (Feet): 5 Height (Inches): 4.00 Weight (Pounds): 105 General Appearance: no apparent distress EENT: PERRL/EOMI Neck: supple Cardiovascular: normal rate Respiratory/Chest: lungs clear Abdomen: soft Extremities: non-tender 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
[2017-04-25 08:26] LABS: BASOPHILS % (AUTO) 1.1 % (0.0-2.0); EOSINOPHILS % (AUTO) 1.4 % (0.0-3.0); HEMATOCRIT 35.9 % (37.0-47.0); HEMOGLOBIN 12.6 G/DL (12.0-16.0); LYMPHOCYTES % (AUTO) 38.2 % (20.0-45.0); MEAN CORPUSCULAR VOLUME 97 FL (80-99); NEUTROPHILS % (AUTO) 53.4 % (45.0-75.0); PLATELET COUNT 211 K/UL (150-450); RED BLOOD COUNT 3.71 M/UL (4.20-5.40); WHITE BLOOD COUNT 7.3 K/UL (4.8-10.8)
--- NOTE | 2017-04-25 08:57 | Diagnostic Imaging Report ---
Indication: Abdominal pain Technique: Ultrasound of the abdomen. Comparison: None Findings: The pancreas is incompletely visualized. Visualized portions are unremarkable. Liver is enlarged measuring 16.9 cm with heterogeneous increased echogenicity. No focal liver lesions are identified. Visualized portions of the main portal vein and the hepatic veins are grossly unremarkable although incompletely evaluated. Trace gallbladder sludge is noted. Gallbladder wall thickness is within normal limits. Sonographic Galan's is negative. Common bile duct measures 3 mm. Bilateral kidneys demonstrate normal echogenicity. A small left renal cyst measures 1 cm. There is no hydronephrosis. No echogenic renal stones are identified. The spleen is normal in size and echogenicity. The visualized aorta is normal in caliber. Visualized portions of the inferior vena cava are unremarkable. Impression: Mild hepatomegaly with increased echogenicity suggestive of fatty infiltration/hepatocellular disease. Clinical correlation recommended. Trace gallbladder sludge. Otherwise normal appearance of the gallbladder. Left renal cyst.
[2017-04-25 08:59] LABS: ALANINE AMINOTRANSFERASE 54 U/L (12-78); ALBUMIN 3.1 G/DL (3.4-5.0); ALBUMIN/GLOBULIN RATIO 1.1 (1.0-2.7); ALKALINE PHOSPHATASE 35 U/L (46-116); ANION GAP 7 mmol/L (5-15); ASPARTATE AMINO TRANSFERASE 27 U/L (15-37); BILIRUBIN,TOTAL 0.3 MG/DL (0.2-1.0); BLOOD UREA NITROGEN 12 mg/dL (7-18); CALCIUM 8.1 MG/DL (8.5-10.1); CARBON DIOXIDE 27 MMOL/L (21-32); CHLORIDE 106 MMOL/L (98-107); CREATININE 0.8 MG/DL (0.55-1.30); POTASSIUM 3.8 MMOL/L (3.5-5.1); SODIUM 140 MMOL/L (136-145)
--- NOTE | 2017-04-26 00:04 | General Progress Note ---
Assessment/Plan Status: stable, progressing Subjective Date patient seen: Apr 25, 2017 Neurologic/Psychiatric: Reports: anxiety, depressed, emotional problems Allergies: Coded Allergies: AMOXICILLIN (Verified Allergy, Unknown, 01/10/17) PENICILLINS (Verified Allergy, Unknown, 01/10/17) Objective Last 24 Hour Vital Signs Date Time Temp Pulse Resp B/P (MAP) Pulse Ox O2 Delivery O2 Flow Rate FiO2 04/25/17 08:00 98.1 75 20 125/60 100 98.1 Laboratory Tests 04/25/17 06:07: White Blood Count 7.3, Red Blood Count 3.71L, Hemoglobin 12.6, Hematocrit 35.9L , Mean Corpuscular Volume 97, Mean Corpuscular Hemoglobin 34.0H, Mean Corpuscular Hemoglobin Concent 35.2, Red Cell Distribution Width 11.0L, Platelet Count 211, Mean Platelet Volume 5.9L, Neutrophils (%) (Auto) 53.4, Lymphocytes (%) (Auto) 38.2, Monocytes (%) (Auto) 6.0, Eosinophils (%) (Auto) 1.4, Basophils (%) (Auto) 1.1, Sodium Level 140, Potassium Level 3.8, Chloride Level 106, Carbon Dioxide Level 27, Anion Gap 7, Blood Urea Nitrogen 12, Creatinine 0.8, Estimat Glomerular Filtration Rate > 60, Glucose Level 118H, Calcium Level 8.1L, Total Bilirubin 0.3, Aspartate Amino Transf (AST/SGOT) 27, Alanine Aminotransferase (ALT/SGPT) 54, Alkaline Phosphatase 35L, Total Protein 6.0#L, Albumin 3.1L, Globulin 2.9, Albumin/Globulin Ratio 1.1 04/25/17 06:30: Urine Opiates Screen Negative, Urine Barbiturates Screen Negative, Phencyclidine (PCP) Screen Negative, Urine Amphetamines Screen Negative, Urine Benzodiazepines Screen PositiveH, Urine Cocaine Screen Negative, Urine Marijuana (THC) Screen Negative Height (Feet): 5 Height (Inches): 4.00 Weight (Pounds): 105 General Appearance: no apparent distress, alert Neurologic: alert, oriented x 3, responsive, depressed affect Marty Ribeiro M.D. Apr 26, 2017 00:04
--- NOTE | 2017-04-28 12:26 | Discharge Summary ---
Discharge Summary Hospital Course Date of Admission Apr 24, 2017 at 07:48 Date of Discharge Apr 25, 2017 at 12:01 Admitting Diagnosis ALCOHOL WITHDRAWAL HPI Rachelle Doan is a 31 year old female who was admitted on Apr 24, 2017 at 07:48 for Alcohol Withdrawal Hospital Course dc summary #[id number] Discharge Discharge Disposition Patient signed AMA Discharge Diagnoses: Discharge Instructions Discharge Instructions Special Instructions I have been assigned to complete a D/C Summary on this account. I was not involved in the patient management Jaimee Moreno NP (Vanchtein) Apr 28, 2017 12:25
--- NOTE | 2017-04-29 03:30 | Discharge Summary 2 SIG ---
DATE OF ADMISSION: 04/24/2017 DATE OF DISCHARGE: 04/25/2017 REASON FOR ADMISSION: 31-year-old female with past medical history of depression, anxiety, and alcohol abuse, presented to emergency room for evaluation. The patient reported nausea, vomiting, and inability to keep any oral intake for the last 24 hours. The patient had multiple episodes of vomiting with epigastric discomfort. No hematemesis. No melena. The patient had a sensation of alcohol withdrawal symptoms and felt jittery and shaky. She denied chest pain and shortness of breath, but reported some palpitations. No falls. No trauma. The patient was in the emergency room two days ago and was attempted to be treated as outpatient. At that time, white blood count was mildly elevated. Urine test was negative. At this time upon evaluation, the patient was afebrile and tachycardic. Tachycardia resolved with IV fluids. The patient had no leukocytosis. Stable hemoglobin and hematocrit. Stable electrolytes and renal parameters. AST was slightly elevated - 43. Lipase- 157. EKG showed normal sinus rhythm. Urine toxicology screen was positive for benzodiazepines. The patient was admitted with acute gastritis, acute abdominal pain, alcohol dependency, anxiety, and depression. HOSPITAL COURSE: The patient was admitted to the floor. The patient was initially kept NPO. Neurology, psychiatric, and GI consults were requested. The patient was on the IV fluids. Antiemetic provided as needed. Neurologist followed.The patient was on the IV fluids with banana bag for replacement of electrolytes. Ativan ordered as needed to prevent alcohol-related delirium. The patient was counseled on the abstinence from alcohol and smoking cessation. DVT and GI prophylaxes provided. Abdominal ultrasound revealed fatty infiltration and mild hepatomegaly with increased echogenicity suggestive of fatty infiltration versus hepatocellular disease. Otherwise, normal appearance of the gallbladder except trace of bladder sludge. Hepatitis panel was negative. The patient was slowly started on diet and advanced , able to tolerate diet. Psychiatrist seen and evaluated the patient and diagnosed her with alcohol dependency and alcohol withdrawal. She optimized psychiatric medication regimen. Patient was started on Valium and Lexapro. Trazodone and Librium were discontinued. The patient was able to tolerate diet and decided to sign against medical advice. The risks and consequences of signing against medical advice were discussed with the patient. The patient verbalized understanding. Nevertheless, she signed the consent and left. FINAL DIAGNOSES: 1. Acute gastritis. 2. Acute abdominal pain likely secondary to above. 3. Alcohol abuse, recurrence and exacerbation. 4. Alcohol dependency. 5. Alcohol withdrawal. 6. Anxiety and depression. 7. Nicotine dependency. Merrill Grover M.D. I have been assigned to dictate discharge summary on this account and I was not involved in the patient's management. Jaimee Moreno (Vanchtein) NNa DR: HEDY JOB#: [id number] CC: QASIM
== END 2017-04-25 12:01 | disposition left against medical advice (07) | DRG 894 ==
LOC: EMR 06:43 → 4E 07:48 → EDBEDREQ 08:03
DX: F10.239 Alcohol dependence with withdrawal, unspecified (principal); F41.8 Other specified anxiety disorders; K29.70 Gastritis, unspecified, without bleeding; F17.200 Nicotine dependence, unspecified, uncomplicated; Z88.1 Allergy status to other antibiotic agents; Z88.0 Allergy status to penicillin; R11.2 Nausea with vomiting, unspecified
CPT/HCPCS: 36415; 76700; 80053; 80061; 80307; 82150; 83036; 83690; 85007; 85025; 86705; 86709; 86803; 87340; 99285; J2405

== ENCOUNTER 2017-05-13 06:58 | Inpatient (IN) | payer OTHER ==
[~2017-05-13] VITALS: Ht 165.1 cm; Wt 49.9 kg
--- NOTE | 2017-05-13 07:09 | Emergency Room Report ---
History of Present Illness General Chief Complaint: General Complaint Source: Patient, Medical Record Present Illness HPI Patient presents with vomiting for several days and anxiety. She feels she is withdrawing from alcohol. She drinks 2 bottles of champagne a day. She's recently gone through a breakup. This led her to drinking heavily. She does have a sponsor. She has projectile vomiting and some vomiting in bed. She is unable to keep down water. She has some epigastric pain. Doesn't radiate. She denies any fevers, upper respiratory symptoms, cough, dyspnea, chest pain. She can't remember when she last moved her bowels. Last period was normal and earlier this month. She tried zofran earlier today and feels it made the vomiting worse. Pain initially rated 5/10, burning and aching. Not suicidal but depressed. Also anxious and feels shaky. No DTs, seizures, major GI bleed. She was admitted earlier this month. Discharged 04/25 with these dx: 1. Acute gastritis. 2. Acute abdominal pain likely secondary to above. 3. Alcohol abuse, recurrence and exacerbation. 4. Alcohol dependency. 5. Alcohol withdrawal. 6. Anxiety and depression. 7. Nicotine dependency. 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 17 Now: No Reviewed Nursing Documentation: PMH: Agreed; PSxH: Agreed Nursing Documentation-PM Past Medical History: No Stated History Hx Cardiac Problems: No Hx Hypertension: No Hx Pacemaker: No Hx Asthma: No Hx COPD: No Hx Diabetes: No Hx Cancer: No Hx Gastrointestinal Problems: No Hx Dialysis: No Hx Neurological Problems: No Hx Cerebrovascular Accident: No Hx Seizures: No Review of Systems All Other Systems: negative except mentioned in HPI Physical Exam Vital Signs Date Time Temp Pulse Resp B/P (MAP) Pulse Ox O2 Delivery O2 Flow Rate FiO2 05/13/17 06:54 98.2 82 18 127/80 98 Room Air 98.2 Sp02 EP Interpretation: reviewed, normal General Appearance: no apparent distress, GCS 15 Head: normocephalic Eyes: bilateral eye normal inspection, bilateral eye PERRL ENT: moist mucus membranes Neck: supple Respiratory: lungs clear, normal breath sounds Cardiovascular #1: regular rate, rhythm Cardiovascular #2: 2+ radial (R) Gastrointestinal: normal inspection, no mass, non-distended, no guarding, no rebound, tenderness - epigastric, decreased bowel sounds, scaphoid Genitourinary: no CVA tenderness Musculoskeletal: back normal, gait/station normal, normal range of motion Neurologic: alert, oriented x3, grossly normal Psychiatric: depressed affect Skin: normal inspection, warm/dry Medical Decision Making Diagnostic Impression: Primary Impression: Intractable vomiting with nausea Qualified Codes: R11.2 - Nausea with vomiting, unspecified Additional Impressions: Alcohol withdrawal Qualified Codes: F10.239 - Alcohol dependence with withdrawal, unspecified Gastritis Qualified Codes: K29.20 - Alcoholic gastritis without bleeding ER Course The patient presents with intractable vomiting and epigastric pain. Differential includes alcohol withdrawal, gastritis, peptic ulcer disease, electrolyte imbalance, anxiety/depression amongst others. She will be evaluated with labs. She'll be treated with IV hydration, Zofran, Pepcid, thiamine and Ativan. Patient still vomiting - Reglan and Benadryl given. Delay due to no labs. Labs with elevated WBC and H/H. Electrolytes with low calcium. UA clear. Tox negative. Patient still vomiting - IV Compazine given. No signs of withdrawal after ativan, however, unable to tolerate oral intake. Admit medical floor, Dr. Grover. Laboratory Tests Test 05/13/17 10:55 05/13/17 11:44 White Blood Count 13.1 K/UL (4.8-10.8) H Red Blood Count 4.50 M/UL (4.20-5.40) Hemoglobin 14.7 G/DL (12.0-16.0) Hematocrit 42.8 % (37.0-47.0) Mean Corpuscular Volume 95 FL (80-99) Mean Corpuscular Hemoglobin 32.7 PG (27.0-31.0) H Mean Corpuscular Hemoglobin Concent 34.4 G/DL (32.0-36.0) Red Cell Distribution Width 11.2 % (11.6-14.8) L Platelet Count 342 K/UL (150-450) Mean Platelet Volume 5.6 FL (6.5-10.1) L Neutrophils (%) (Auto) % (45.0-75.0) Lymphocytes (%) (Auto) % (20.0-45.0) Monocytes (%) (Auto) % (1.0-10.0) Eosinophils (%) (Auto) % (0.0-3.0) Basophils (%) (Auto) % (0.0-2.0) Differential Total Cells Counted 100 Neutrophils % (Manual) 89 % (45-75) H Lymphocytes % (Manual) 4 % (20-45) L Monocytes % (Manual) 7 % (1-10) Eosinophils % (Manual) 0 % (0-3) Basophils % (Manual) 0 % (0-2) Band Neutrophils 0 % (0-8) Platelet Estimate Adequate Platelet Morphology Normal Red Blood Cell Morphology Normal Prothrombin Time 10.5 SEC (9.30-11.50) Prothrombin Time INR 1.0 (0.9-1.1) PTT 28 SEC (23-33) Sodium Level 141 MMOL/L (136-145) Potassium Level 3.9 MMOL/L (3.5-5.1) Chloride Level 105 MMOL/L (98-107) Carbon Dioxide Level 30 MMOL/L (21-32) Anion Gap 7 mmol/L (5-15) Blood Urea Nitrogen 12 mg/dL (7-18) Creatinine 0.7 MG/DL (0.55-1.30) Estimate Glomerular Filtration Rate > 60 mL/min (>60) Glucose Level 103 MG/DL (74-106) Calcium Level 7.9 MG/DL (8.5-10.1) L Total Bilirubin 0.8 MG/DL (0.2-1.0) Aspartate Amino Transferase (AST) 29 U/L (15-37) Alanine Aminotransferase (ALT) 32 U/L (12-78) Alkaline Phosphatase 37 U/L (46-116) L Total Protein 7.4 G/DL (6.4-8.2) Albumin 4.0 G/DL (3.4-5.0) Globulin 3.4 g/dL Albumin/Globulin Ratio 1.2 (1.0-2.7) Lipase 257 U/L (73-393) Serum Alcohol < 3 mg/dL Urine Color Yellow Urine Appearance Clear Urine pH 6 (4.5-8.0) Urine Specific [place] 1.020 (1.005-1.035) Urine Protein 2+ (NEGATIVE) H Urine Glucose (UA) 3+ (NEGATIVE) H Urine Ketones 4+ (NEGATIVE) H Urine Occult Blood Negative (NEGATIVE) Urine Nitrite Negative (NEGATIVE) Urine Bilirubin Negative (NEGATIVE) Urine Urobilinogen Normal MG/DL (0.0-1.0) Urine Leukocyte Esterase 1+ (NEGATIVE) H Urine RBC 0-2 /HPF (0 - 2) Urine WBC 2-4 /HPF (0 - 2) Urine Squamous Epithelial Cells Moderate /LPF (NONE/OCC) H Urine Bacteria Few /HPF (NONE) Urine Mucus Few /LPF (NONE/OCC) H Urine Opiates Screen Negative (NEGATIVE) Urine Barbiturates Screen Negative (NEGATIVE) Phencyclidine (PCP) Screen Negative (NEGATIVE) Urine Amphetamines Screen Negative (NEGATIVE) Urine Benzodiazepines Screen Negative (NEGATIVE) Urine Cocaine Screen Negative (NEGATIVE) Urine Marijuana (THC) Screen Negative (NEGATIVE) Rhythm Strip Diag. Results EP Interpretation: yes Rhythm: NSR, no PVC's, no ectopy Last Vital Signs Date Time Temp Pulse Resp B/P (MAP) Pulse Ox O2 Delivery O2 Flow Rate FiO2 05/13/17 12:51 68 21 114/67 100 Room Air 05/13/17 06:54 98.2 98.2 Status: improved Disposition: ADMITTED INPATIENT Condition: Serious Juan David Veras M.D. May 13, 2017 07:09
[2017-05-13] MEDS ORDERED: Thiamine HCl 100 MG in D5W 55 ML IVPB SCH (07:15)
[2017-05-13] MEDS ORDERED: LORazepam Inj 2mg/ml 1ml IV ONE ×2 (07:15→11:15)
[2017-05-13] MEDS ORDERED: Thiamine HCl 100mg/ml 2 ml Inj ONE (07:39)
[2017-05-13 08:00] VITALS: BP 145/87
[2017-05-13] MEDS ORDERED: DiphenhydrAMINE 50mg/ml Inj IVP ONE (09:00)
[2017-05-13] MEDS ORDERED: Metoclopramide 10mg/2ml Inj IVP ONE (09:00)
[2017-05-13 09:53] VITALS: BP 120/76
[2017-05-13 11:06] LABS: HEMATOCRIT 42.8 % (37.0-47.0); HEMOGLOBIN 14.7 G/DL (12.0-16.0); MEAN CORPUSCULAR VOLUME 95 FL (80-99); PLATELET COUNT 342 K/UL (150-450); RED CELL DISTRIBUTION WIDTH 11.2 % (11.6-14.8); WHITE BLOOD COUNT 13.1 K/UL (4.8-10.8)
[2017-05-13 11:12] LABS: ANION GAP 7 mmol/L (5-15); BLOOD UREA NITROGEN 12 mg/dL (7-18); CALCIUM 7.9 MG/DL (8.5-10.1); CARBON DIOXIDE 30 MMOL/L (21-32); CHLORIDE 105 MMOL/L (98-107); CREATININE 0.7 MG/DL (0.55-1.30); POTASSIUM 3.9 MMOL/L (3.5-5.1); SODIUM 141 MMOL/L (136-145)
[2017-05-13 11:16] LABS: ALANINE AMINOTRANSFERASE 32 U/L (12-78); ALBUMIN/GLOBULIN RATIO 1.2 (1.0-2.7); ALKALINE PHOSPHATASE 37 U/L (46-116); ASPARTATE AMINO TRANSFERASE 29 U/L (15-37); BILIRUBIN,TOTAL 0.8 MG/DL (0.2-1.0)
[2017-05-13] MEDS ORDERED: BUSPIRONE HCL10 M1 ORAL (11:37)
[2017-05-13] MEDS ORDERED: LEXAPRO20 MG ORAL (11:37)
[2017-05-13] MEDS ORDERED: TRAZODONE HCL50 MG ORAL (11:37)
[2017-05-13] MEDS ORDERED: ABILIFY2 MG ORAL (11:37)
[2017-05-13 12:12] LABS: APPEARANCE,URINE CLEAR; BILIRUBIN, URINE NEGATIVE (NEGATIVE); GLUCOSE, URINE (UA) 3+ (NEGATIVE); KETONES,URINE 4+ (NEGATIVE); LEUKOCYTE ESTERASE ,URINE 1+ (NEGATIVE); NITRITE,URINE NEGATIVE (NEGATIVE); PH,URINE 6 (4.5-8.0); PROTEIN,URINE 2+ (NEGATIVE); UROBILINOGEN,URINE NORMAL MG/DL (0.0-1.0)
[2017-05-13 12:18] LABS: COLOR,URINE YELLOW
[2017-05-13 12:51] VITALS: BP 114/97
--- NOTE | 2017-05-13 14:18 | GI Initial Consult Note ---
History of Present Illness General Date patient seen: May 13, 2017 Time patient seen: 14:06 Reason for Hospitalization: General Complaint Referring physician: VENESSA PRABHAKAR Reason for Consultation: ETOH WITHDRAWAL Present Illness HPI Patient presents with vomiting for several days and anxiety. She feels she is withdrawing from alcohol. She drinks 2 bottles of champagne a day. She's recently gone through a breakup. This letter to drinking heavily. She does have a sponsor. She has projectile vomiting and except vomiting in bed. She is unable to keep down water. She has some epigastric pain. Doesn't radiate. She denies any fevers, upper respiratory symptoms, cough, dyspnea, chest pain. She can't remember when she last moved her bowels. Last period was normal and earlier this month. She tried zofran earlier today and feels it made the vomiting worse. GI consulted for etoh withdrawal. Pt seen, awake A&Ox4 NAD with no active s/sx of N/V/D at this time. Pt reports multiple episodes of emesis for the past 4 days. Unable to tolerate any PO intake. Denies any abdominal pain. Has abdominal tenderness. Had recent admission here at [place] on 04/24/17 for similar reason. U/S was performed at that time to show Mild hepatomegaly with increased echogenicity suggestive of fatty infiltration/hepatocellular disease. No history of endoscopy. Home Meds Active Scripts Lorazepam* (ATIVAN*) 1 Mg Tablet, 1 MG ORAL THREE TIMES A DAY, #14 TAB Prov:Joe Roy 04/20/17 Chlordiazepoxide Hcl* (LIBRIUM*) 10 Mg Capsule, 10 MG ORAL THREE TIMES A DAY, # 15 CAP 0 Refills Prov:Joe Roy 01/20/17 Ondansetron Odt* (ZOFRAN ODT*) 4 Mg Tab.rapdis, 4 MG ORAL Q6H PRN for Nausea & Vomiting, #30 TAB 0 Refills Prov:Rufus Ewing MD 01/10/17 Lorazepam* (ATIVAN*) 1 Mg Tablet, 1 MG ORAL THREE TIMES A DAY, #10 TAB Prov:Rufus Ewing MD 01/10/17 Reported Medications Aripiprazole* (ABILIFY*) 2 Mg Tablet, 5 MG ORAL DAILY, TAB 05/13/17 Trazodone Hcl* (DESYREL*) 50 Mg Tablet, 50 MG ORAL BEDTIME, TAB 05/13/17 Escitalopram Oxalate* (LEXAPRO*) 20 Mg Tablet, 20 MG ORAL DAILY, TAB 05/13/17 Buspirone Hcl* (BUSPIRONE HCL*) 10 Mg Tablet, 10 MG ORAL THREE TIMES A DAY, #60 TAB 0 Refills 05/13/17 Med list reviewed/reconciled: Yes Allergies: Coded Allergies: AMOXICILLIN (Verified Allergy, Unknown, 01/10/17) PENICILLINS (Verified Allergy, Unknown, 01/10/17) Patient History History Provided By: Patient PMH Narrative Past Medical History: see triage record 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 Now: No Reviewed Nursing Documentation: PMH: Agreed; PSxH: Agreed Nursing Documentation-PM Past Medical History: No Stated History Hx Cardiac Problems: No Hx Hypertension: No Hx Pacemaker: No Hx Asthma: No Hx COPD: No Hx Diabetes: No Hx Cancer: No Hx Gastrointestinal Problems: No Hx Dialysis: No Hx Neurological Problems: No Hx Cerebrovascular Accident: No Hx Seizures: No Past Surgical History: none Social History: Reports: alcohol use - alcoholism Review of Systems All Other Systems: negative except mentioned in HPI Physical Exam Vital Signs Date Time Temp Pulse Resp B/P (MAP) Pulse Ox O2 Delivery O2 Flow Rate FiO2 05/13/17 06:54 98.2 82 18 127/80 98 Room Air 98.2 Sp02 EP Interpretation: reviewed, normal Labs Laboratory Tests Test 05/13/17 10:55 05/13/17 11:44 White Blood Count 13.1 K/UL (4.8-10.8) H Red Blood Count 4.50 M/UL (4.20-5.40) Hemoglobin 14.7 G/DL (12.0-16.0) Hematocrit 42.8 % (37.0-47.0) Mean Corpuscular Volume 95 FL (80-99) Mean Corpuscular Hemoglobin 32.7 PG (27.0-31.0) H Mean Corpuscular Hemoglobin Concent 34.4 G/DL (32.0-36.0) Red Cell Distribution Width 11.2 % (11.6-14.8) L Platelet Count 342 K/UL (150-450) Mean Platelet Volume 5.6 FL (6.5-10.1) L Neutrophils (%) (Auto) % (45.0-75.0) Lymphocytes (%) (Auto) % (20.0-45.0) Monocytes (%) (Auto) % (1.0-10.0) Eosinophils (%) (Auto) % (0.0-3.0) Basophils (%) (Auto) % (0.0-2.0) Differential Total Cells Counted 100 Neutrophils % (Manual) 89 % (45-75) H Lymphocytes % (Manual) 4 % (20-45) L Monocytes % (Manual) 7 % (1-10) Eosinophils % (Manual) 0 % (0-3) Basophils % (Manual) 0 % (0-2) Band Neutrophils 0 % (0-8) Platelet Estimate Adequate Platelet Morphology Normal Red Blood Cell Morphology Normal Prothrombin Time 10.5 SEC (9.30-11.50) Prothromb Time International Ratio 1.0 (0.9-1.1) Activated Partial Thromboplast Time 28 SEC (23-33) Sodium Level 141 MMOL/L (136-145) Potassium Level 3.9 MMOL/L (3.5-5.1) Chloride Level 105 MMOL/L (98-107) Carbon Dioxide Level 30 MMOL/L (21-32) Anion Gap 7 mmol/L (5-15) Blood Urea Nitrogen 12 mg/dL (7-18) Creatinine 0.7 MG/DL (0.55-1.30) Estimat Glomerular Filtration Rate > 60 mL/min (>60) Glucose Level 103 MG/DL (74-106) Calcium Level 7.9 MG/DL (8.5-10.1) L Total Bilirubin 0.8 MG/DL (0.2-1.0) Aspartate Amino Transf (AST/SGOT) 29 U/L (15-37) Alanine Aminotransferase (ALT/SGPT) 32 U/L (12-78) Alkaline Phosphatase 37 U/L (46-116) L Total Protein 7.4 G/DL (6.4-8.2) Albumin 4.0 G/DL (3.4-5.0) Globulin 3.4 g/dL Albumin/Globulin Ratio 1.2 (1.0-2.7) Lipase 257 U/L (73-393) Serum Alcohol < 3 mg/dL Urine Color Yellow Urine Appearance Clear Urine pH 6 (4.5-8.0) Urine Specific [place] 1.020 (1.005-1.035) Urine Protein 2+ (NEGATIVE) H Urine Glucose (UA) 3+ (NEGATIVE) H Urine Ketones 4+ (NEGATIVE) H Urine Occult Blood Negative (NEGATIVE) Urine Nitrite Negative (NEGATIVE) Urine Bilirubin Negative (NEGATIVE) Urine Urobilinogen Normal MG/DL (0.0-1.0) Urine Leukocyte Esterase 1+ (NEGATIVE) H Urine RBC 0-2 /HPF (0 - 2) Urine WBC 2-4 /HPF (0 - 2) Urine Squamous Epithelial Cells Moderate /LPF (NONE/OCC) H Urine Bacteria Few /HPF (NONE) Urine Mucus Few /LPF (NONE/OCC) H Urine Opiates Screen Negative (NEGATIVE) Urine Barbiturates Screen Negative (NEGATIVE) Phencyclidine (PCP) Screen Negative (NEGATIVE) Urine Amphetamines Screen Negative (NEGATIVE) Urine Benzodiazepines Screen Negative (NEGATIVE) Urine Cocaine Screen Negative (NEGATIVE) Urine Marijuana (THC) Screen Negative (NEGATIVE) General Appearance: well appearing, no apparent distress, alert Head: normocephalic EENT: PERRL/EOMI, normal ENT inspection Neck: supple Respiratory: normal breath sounds, no respiratory distress Cardiovascular: normal rate Gastrointestinal: normal inspection, non tender, soft, normal bowel sounds, non -distended Rectal: deferred Genitourinary: no CVA tenderness Musculoskeletal: normal inspection, back normal Neurologic: normal inspection, alert, oriented x3, responsive Psychiatric: normal inspection, judgement/insight normal, memory normal Skin: normal inspection, normal color, no rash, warm/dry, palpation normal, well hydrated Lymphatic: normal inspection, no adenopathy Current Medications Current Medications Medications (Trade) Dose Ordered Sig/Prakash Route PRN Reason Start Time Stop Time Status Last Admin Dose Admin Sodium Chloride 1,000 ml @ 300 mls/hr Q3H20M IV 05/13/17 07:15 06/12/17 07:14 05/13/17 07:44 Thiamine HCl 100 mg/Dextrose 56 ml @ 112 mls/hr Q24H IVPB 05/13/17 07:15 06/12/17 07:14 05/13/17 07:43 GI: Plan Problems: (1) Depressed affect (2) Alcohol withdrawal (3) ETOH abuse Plan abdominal U/S 04/24/17 - Mild hepatomegaly with increased echogenicity suggestive of fatty infiltration/hepatocellular disease. no transaminitis utox negative serum alcohol WNL symptomatic treatment at this time zofran prn, reglan for persistent vomiting PO/IV hydration ativan prn MVI/folate/thiamine CLD, adv as tolerated avoid alcohol fu labs Discussed with Dr. Jeff. Thank you for this patient referral, we will follow. Sayra Arevalo N.P. May 13, 2017 14:18
[2017-05-13] MEDS: Folic Acid 1 MG, Magnesium Sulfate 2,000 MG, Multivitamin - 12 Injection 10 ML in NS w/... IV SCH (18:37)
[2017-05-13 20:00] VITALS: BP 104/59
[2017-05-14] VITALS: BP 97/55
[2017-05-14] MEDS: LORazepam 1mg tab ORAL PRN ×2 (00:27→08:42)
[2017-05-14] MEDS ORDERED: BusPIRone 5mg Tab ORAL PRN (02:45)
[2017-05-14 04:00] VITALS: BP 93/58
[2017-05-14 07:13] LABS: ANION GAP 4 mmol/L (5-15); BLOOD UREA NITROGEN 15 mg/dL (7-18); CALCIUM 7.2 MG/DL (8.5-10.1); CARBON DIOXIDE 29 MMOL/L (21-32); CHLORIDE 110 MMOL/L (98-107); CREATININE 0.7 MG/DL (0.55-1.30); SODIUM 143 MMOL/L (136-145)
[2017-05-14 07:40] LABS: BASOPHILS % (AUTO) 0.7 % (0.0-2.0); EOSINOPHILS % (AUTO) 0.2 % (0.0-3.0); HEMATOCRIT 34.1 % (37.0-47.0); HEMOGLOBIN 12.1 G/DL (12.0-16.0); LYMPHOCYTES % (AUTO) 33.7 % (20.0-45.0); MEAN CORPUSCULAR VOLUME 95 FL (80-99); MONOCYTES % (AUTO) 6.7 % (1.0-10.0); NEUTROPHILS % (AUTO) 58.8 % (45.0-75.0); PLATELET COUNT 208 K/UL (150-450); RED BLOOD COUNT 3.58 M/UL (4.20-5.40); RED CELL DISTRIBUTION WIDTH 11.3 % (11.6-14.8)
--- NOTE | 2017-05-14 07:52 | History & Physical ---
History and Physical History & Physicial seen and examined. Dictation completed. Merrill Grover MD May 14, 2017 07:52
--- NOTE | 2017-05-14 07:53 | General Progress Note ---
Assessment/Plan Status: stable Assessment/Plan 1- Acute Gastritis 2- Psych Plan: NPO for now once tolerating PO , may by ok to followup as o/p Subjective ROS Limited/Unobtainable: No Constitutional: Reports: weakness HEENT: Reports: no symptoms Cardiovascular: Reports: no symptoms Allergies: Coded Allergies: AMOXICILLIN (Verified Allergy, Unknown, 01/10/17) PENICILLINS (Verified Allergy, Unknown, 01/10/17) Objective Last 24 Hour Vital Signs Date Time Temp Pulse Resp B/P (MAP) Pulse Ox O2 Delivery O2 Flow Rate FiO2 05/14/17 04:00 97.4 67 20 93/58 94 97.4 05/14/17 00:00 98.6 56 20 97/55 96 98.6 05/14/17 00:00 96 Room Air 05/13/17 20:00 99.0 80 20 104/59 96 99.0 05/13/17 20:00 96 Room Air 05/13/17 12:51 68 21 114/67 100 Room Air 05/13/17 12:51 68 21 114/97 100 Room Air 05/13/17 09:53 88 24 120/76 100 Room Air 05/13/17 08:00 82 27 145/87 100 Room Air Intake and Output 05/13/17 05/14/17 19:00 07:00 Intake Total 2156 ml 1900 ml Balance 2156 ml 1900 ml Intake Oral 0 ml 1000 ml IV Total 2156 ml 900 ml # Voids 2 Laboratory Tests 05/13/17 10:55: White Blood Count 13.1H, Red Blood Count 4.50, Hemoglobin 14.7, Hematocrit 42.8 , Mean Corpuscular Volume 95, Mean Corpuscular Hemoglobin 32.7H, Mean Corpuscular Hemoglobin Concent 34.4, Red Cell Distribution Width 11.2L, Platelet Count 342, Mean Platelet Volume 5.6L, Neutrophils (%) (Auto) , Lymphocytes (%) (Auto) , Monocytes (%) (Auto) , Eosinophils (%) (Auto) , Basophils (%) (Auto) , Differential Total Cells Counted 100, Neutrophils % ( Manual) 89H, Lymphocytes % (Manual) 4L, Monocytes % (Manual) 7, Eosinophils % ( Manual) 0, Basophils % (Manual) 0, Band Neutrophils 0, Platelet Estimate Adequate, Platelet Morphology Normal, Red Blood Cell Morphology Normal, Prothrombin Time 10.5, Prothromb Time International Ratio 1.0, Activated Partial Thromboplast Time 28, Sodium Level 141, Potassium Level 3.9, Chloride Level 105, Carbon Dioxide Level 30, Anion Gap 7, Blood Urea Nitrogen 12, Creatinine 0.7, Estimat Glomerular Filtration Rate > 60, Glucose Level 103, Calcium Level 7.9L, Total Bilirubin 0.8, Aspartate Amino Transf (AST/SGOT) 29, Alanine Aminotransferase (ALT/SGPT) 32, Alkaline Phosphatase 37L, Total Protein 7.4, Albumin 4.0, Globulin 3.4, Albumin/Globulin Ratio 1.2, Lipase 257, Serum Alcohol < 3 05/13/17 11:44: Urine Color Yellow, Urine Appearance Clear, Urine pH 6, Urine Specific [place] 1.020, Urine Protein 2+H, Urine Glucose (UA) 3+H, Urine Ketones 4+H, Urine Occult Blood Negative, Urine Nitrite Negative, Urine Bilirubin Negative, Urine Urobilinogen Normal, Urine Leukocyte Esterase 1+H, Urine RBC 0-2, Urine WBC 2-4 , Urine Squamous Epithelial Cells ModerateH, Urine Bacteria Few, Urine Mucus FewH, Urine Opiates Screen Negative, Urine Barbiturates Screen Negative, Phencyclidine (PCP) Screen Negative, Urine Amphetamines Screen Negative, Urine Benzodiazepines Screen Negative, Urine Cocaine Screen Negative, Urine Marijuana (THC) Screen Negative 05/14/17 05:40: White Blood Count 9.0, Red Blood Count 3.58L, Hemoglobin 12.1, Hematocrit 34.1L , Mean Corpuscular Volume 95, Mean Corpuscular Hemoglobin 33.8H, Mean Corpuscular Hemoglobin Concent 35.4, Red Cell Distribution Width 11.3L, Platelet Count 208, Mean Platelet Volume 5.8L, Neutrophils (%) (Auto) 58.8, Lymphocytes (%) (Auto) 33.7, Monocytes (%) (Auto) 6.7, Eosinophils (%) (Auto) 0.2, Basophils (%) (Auto) 0.7, Sodium Level 143, Potassium Level 4.0, Chloride Level 110H, Carbon Dioxide Level 29, Anion Gap 4L, Blood Urea Nitrogen 15, Creatinine 0.7, Estimat Glomerular Filtration Rate > 60, Glucose Level 97, Calcium Level 7.2L Height (Feet): 5 Height (Inches): 5.00 Weight (Pounds): 110 General Appearance: no apparent distress EENT: PERRL/EOMI Neck: supple Cardiovascular: normal rate Respiratory/Chest: lungs clear Abdomen: soft Extremities: non-tender Neurologic: filleter II-XII grossly normal Merrill Grover MD May 14, 2017 07:53
[2017-05-14] MEDS: Thiamine HCl 100 MG in D5W 110 ML IVPB SCH (08:41)
[2017-05-14] MEDS ORDERED: BusPIRone 5mg Tab ORAL SCH (09:00)
[2017-05-14] MEDS ORDERED: Thiamine 100mg tab ORAL SCH (09:00)
--- NOTE | 2017-05-14 10:07 | GI Progress Note ---
Assessment/Plan Problems: (1) Intractable vomiting with nausea ICD Codes: R11.2 - Nausea with vomiting, unspecified SNOMED: 659132749 Qualifiers: Qualified Codes: R11.2 - Nausea with vomiting, unspecified (2) Alcohol withdrawal ICD Codes: F10.239 - Alcohol dependence with withdrawal, unspecified SNOMED: 474448515 Qualifiers: Qualified Codes: F10.239 - Alcohol dependence with withdrawal, unspecified (3) Gastritis ICD Codes: K29.70 - Gastritis, unspecified, without bleeding SNOMED: 9115301 Qualifiers: Qualified Codes: K29.20 - Alcoholic gastritis without bleeding (4) Encounter for generalized patient complaints ICD Codes: Z00.8 - Encounter for other general examination SNOMED: 641233953 (5) Depressed affect ICD Codes: R45.89 - Other symptoms and signs involving emotional state SNOMED: 568578719 (6) ETOH abuse ICD Codes: F10.10 - Alcohol abuse, uncomplicated SNOMED: 27394348 Status: unchanged Status Narrative Discussed with Dr. Jeff. Assessment/Plan abdominal U/S 04/24/17 - Mild hepatomegaly with increased echogenicity suggestive of fatty infiltration/hepatocellular disease. no transaminitis utox negative serum alcohol WNL symptomatic treatment at this time zofran prn, reglan for persistent vomiting PO/IV hydration ativan prn MVI/folate/thiamine CLD, adv as tolerated avoid alcohol fu labs Subjective Subjective abdominal pain episode of emesis this morning Objective Last 24 Hour Vital Signs Date Time Temp Pulse Resp B/P (MAP) Pulse Ox O2 Delivery O2 Flow Rate FiO2 05/14/17 04:00 97.4 67 20 93/58 94 97.4 05/14/17 00:00 98.6 56 20 97/55 96 98.6 05/14/17 00:00 96 Room Air 05/13/17 20:00 99.0 80 20 104/59 96 99.0 05/13/17 20:00 96 Room Air 05/13/17 12:51 68 21 114/67 100 Room Air 05/13/17 12:51 68 21 114/97 100 Room Air Intake and Output 05/13/17 05/14/17 19:00 07:00 Intake Total 2156 ml 1900 ml Balance 2156 ml 1900 ml Intake Oral 0 ml 1000 ml IV Total 2156 ml 900 ml # Voids 2 Laboratory Tests Test 3/28/18 10:55 05/13/17 11:44 05/14/17 05:40 White Blood Count 13.1 K/UL (4.8-10.8) H 9.0 K/UL (4.8-10.8) Red Blood Count 4.50 M/UL (4.20-5.40) 3.58 M/UL (4.20-5.40) L Hemoglobin 14.7 G/DL (12.0-16.0) 12.1 G/DL (12.0-16.0) Hematocrit 42.8 % (37.0-47.0) 34.1 % (37.0-47.0) L Mean Corpuscular Volume 95 FL (80-99) 95 FL (80-99) Mean Corpuscular Hemoglobin 32.7 PG (27.0-31.0) H 33.8 PG (27.0-31.0) H Mean Corpuscular Hemoglobin Concent 34.4 G/DL (32.0-36.0) 35.4 G/DL (32.0-36.0) Red Cell Distribution Width 11.2 % (11.6-14.8) L 11.3 % (11.6-14.8) L Platelet Count 342 K/UL (150-450) 208 K/UL (150-450) Mean Platelet Volume 5.6 FL (6.5-10.1) L 5.8 FL (6.5-10.1) L Neutrophils (%) (Auto) % (45.0-75.0) 58.8 % (45.0-75.0) Lymphocytes (%) (Auto) % (20.0-45.0) 33.7 % (20.0-45.0) Monocytes (%) (Auto) % (1.0-10.0) 6.7 % (1.0-10.0) Eosinophils (%) (Auto) % (0.0-3.0) 0.2 % (0.0-3.0) Basophils (%) (Auto) % (0.0-2.0) 0.7 % (0.0-2.0) Differential Total Cells Counted 100 Neutrophils % (Manual) 89 % (45-75) H Lymphocytes % (Manual) 4 % (20-45) L Monocytes % (Manual) 7 % (1-10) Eosinophils % (Manual) 0 % (0-3) Basophils % (Manual) 0 % (0-2) Band Neutrophils 0 % (0-8) Platelet Estimate Adequate Platelet Morphology Normal Red Blood Cell Morphology Normal Prothrombin Time 10.5 SEC (9.30-11.50) Prothromb Time International Ratio 1.0 (0.9-1.1) Activated Partial Thromboplast Time 28 SEC (23-33) Sodium Level 141 MMOL/L (136-145) 143 MMOL/L (136-145) Potassium Level 3.9 MMOL/L (3.5-5.1) 4.0 MMOL/L (3.5-5.1) Chloride Level 105 MMOL/L (98-107) 110 MMOL/L (98-107) H Carbon Dioxide Level 30 MMOL/L (21-32) 29 MMOL/L (21-32) Anion Gap 7 mmol/L (5-15) 4 mmol/L (5-15) L Blood Urea Nitrogen 12 mg/dL (7-18) 15 mg/dL (7-18) Creatinine 0.7 MG/DL (0.55-1.30) 0.7 MG/DL (0.55-1.30) Estimat Glomerular Filtration Rate > 60 mL/min (>60) > 60 mL/min (>60) Glucose Level 103 MG/DL (74-106) 97 MG/DL (74-106) Calcium Level 7.9 MG/DL (8.5-10.1) L 7.2 MG/DL (8.5-10.1) L Total Bilirubin 0.8 MG/DL (0.2-1.0) Aspartate Amino Transf (AST/SGOT) 29 U/L (15-37) Alanine Aminotransferase (ALT/SGPT) 32 U/L (12-78) Alkaline Phosphatase 37 U/L (46-116) L Total Protein 7.4 G/DL (6.4-8.2) Albumin 4.0 G/DL (3.4-5.0) Globulin 3.4 g/dL Albumin/Globulin Ratio 1.2 (1.0-2.7) Lipase 257 U/L (73-393) Serum Alcohol < 3 mg/dL Urine Color Yellow Urine Appearance Clear Urine pH 6 (4.5-8.0) Urine Specific [place] 1.020 (1.005-1.035) Urine Protein 2+ (NEGATIVE) H Urine Glucose (UA) 3+ (NEGATIVE) H Urine Ketones 4+ (NEGATIVE) H Urine Occult Blood Negative (NEGATIVE) Urine Nitrite Negative (NEGATIVE) Urine Bilirubin Negative (NEGATIVE) Urine Urobilinogen Normal MG/DL (0.0-1.0) Urine Leukocyte Esterase 1+ (NEGATIVE) H Urine RBC 0-2 /HPF (0 - 2) Urine WBC 2-4 /HPF (0 - 2) Urine Squamous Epithelial Cells Moderate /LPF (NONE/OCC) H Urine Bacteria Few /HPF (NONE) Urine Mucus Few /LPF (NONE/OCC) H Urine Opiates Screen Negative (NEGATIVE) Urine Barbiturates Screen Negative (NEGATIVE) Phencyclidine (PCP) Screen Negative (NEGATIVE) Urine Amphetamines Screen Negative (NEGATIVE) Urine Benzodiazepines Screen Negative (NEGATIVE) Urine Cocaine Screen Negative (NEGATIVE) Urine Marijuana (THC) Screen Negative (NEGATIVE) Height (Feet): 5 Height (Inches): 5.00 Weight (Pounds): 110 General Appearance: WD/WN, no apparent distress, alert Cardiovascular: normal rate Respiratory/Chest: normal breath sounds, no respiratory distress Abdominal Exam: normal bowel sounds, non tender, soft Extremities: normal range of motion, non-tender Sayra Arevalo N.P. May 14, 2017 10:07
[2017-05-14 11:42] VITALS: BP 126/77
--- NOTE | 2017-05-14 13:12 | Consultation ---
History of Present Illness General Date patient seen: May 14, 2017 Chief Complaint: General Complaint Referring physician: VENESSA PRABHAKAR Reason for Consultation: ETOH WITHDRAWAL Present Illness HPI 31-year-old female with history of alcoholism. The patient presented with the acute onset of nausea, vomiting and abdominal pain. the pt is pw n/v/eng and anxiety. vital signs within normal limits. the pt relapsed recently and has been drinking excessively Allergies: Coded Allergies: AMOXICILLIN (Verified Allergy, Unknown, 01/10/17) PENICILLINS (Verified Allergy, Unknown, 01/10/17) Medication History Scheduled Aripiprazole* (Abilify*), 5 MG ORAL DAILY, (Reported) Buspirone Hcl* (Buspirone Hcl*), 10 MG ORAL THREE TIMES A DAY, (Reported) Chlordiazepoxide Hcl* (Librium*), 10 MG ORAL THREE TIMES A DAY Escitalopram Oxalate* (Lexapro*), 20 MG ORAL DAILY, (Reported) Lorazepam* (Ativan*), 1 MG ORAL THREE TIMES A DAY Lorazepam* (Ativan*), 1 MG ORAL THREE TIMES A DAY Trazodone Hcl* (Desyrel*), 50 MG ORAL BEDTIME, (Reported) Scheduled PRN Ondansetron Odt* (Zofran Odt*), 4 MG ORAL Q6H PRN for Nausea & Vomiting Patient History Limited by: medical condition History Provided By: Patient, PMD Healthcare decision maker Resuscitation status Advanced Directive on File No Past Medical/Surgical History Past Medical/Surgical History: (1) Depressed affect (2) Encounter for generalized patient complaints (3) Gastritis (4) Alcohol withdrawal (5) Intractable vomiting with nausea Review of Systems Psychiatric: Reports: prior hx, anxiety, depressed feelings, emotional problems Physical Exam General Appearance: no apparent distress, alert, agitated Last 24 Hour Vital Signs Date Time Temp Pulse Resp B/P (MAP) Pulse Ox O2 Delivery O2 Flow Rate FiO2 05/14/17 11:42 92.9 62 16 126/77 98 Room Air 92.9 05/14/17 04:00 97.4 67 20 93/58 94 97.4 05/14/17 00:00 98.6 56 20 97/55 96 98.6 05/14/17 00:00 96 Room Air 05/13/17 20:00 99.0 80 20 104/59 96 99.0 05/13/17 20:00 96 Room Air Intake and Output 05/13/17 05/14/17 19:00 07:00 Intake Total 2156 ml 1900 ml Balance 2156 ml 1900 ml Intake Oral 0 ml 1000 ml IV Total 2156 ml 900 ml # Voids 2 Laboratory Tests Test 05/14/17 05:40 White Blood Count 9.0 K/UL (4.8-10.8) Red Blood Count 3.58 M/UL (4.20-5.40) L Hemoglobin 12.1 G/DL (12.0-16.0) Hematocrit 34.1 % (37.0-47.0) L Mean Corpuscular Volume 95 FL (80-99) Mean Corpuscular Hemoglobin 33.8 PG (27.0-31.0) H Mean Corpuscular Hemoglobin Concent 35.4 G/DL (32.0-36.0) Red Cell Distribution Width 11.3 % (11.6-14.8) L Platelet Count 208 K/UL (150-450) Mean Platelet Volume 5.8 FL (6.5-10.1) L Neutrophils (%) (Auto) 58.8 % (45.0-75.0) Lymphocytes (%) (Auto) 33.7 % (20.0-45.0) Monocytes (%) (Auto) 6.7 % (1.0-10.0) Eosinophils (%) (Auto) 0.2 % (0.0-3.0) Basophils (%) (Auto) 0.7 % (0.0-2.0) Sodium Level 143 MMOL/L (136-145) Potassium Level 4.0 MMOL/L (3.5-5.1) Chloride Level 110 MMOL/L (98-107) H Carbon Dioxide Level 29 MMOL/L (21-32) Anion Gap 4 mmol/L (5-15) L Blood Urea Nitrogen 15 mg/dL (7-18) Creatinine 0.7 MG/DL (0.55-1.30) Estimat Glomerular Filtration Rate > 60 mL/min (>60) Glucose Level 97 MG/DL (74-106) Calcium Level 7.2 MG/DL (8.5-10.1) L Height (Feet): 5 Height (Inches): 5.00 Weight (Pounds): 110 Medications Current Medications Medications (Trade) Dose Ordered Sig/Prakash Route PRN Reason Start Time Stop Time Status Last Admin Dose Admin Aripiprazole (Abilify) 5 mg BEDTIME ORAL 05/14/17 21:00 06/13/17 20:59 Buspirone HCl (Buspar) 10 mg THREE TIMES A DAY PRN ORAL For Anxiety 05/14/17 02:45 06/13/17 02:44 Diazepam (Valium) 10 mg Q2H PRN ORAL For Anxiety 05/14/17 11:30 05/21/17 11:29 05/14/17 11:28 Diphenhydramine HCl (Benadryl) 50 mg Q6H PRN ORAL Itching 05/14/17 13:00 06/13/17 12:59 05/14/17 13:02 Escitalopram Oxalate (Lexapro) 20 mg BEDTIME ORAL 05/14/17 21:00 06/13/17 20:59 Folic Acid 1 mg/ Magnesium Sulfate 2000 mg/ Multivitamins 10 ml/Sodium Chloride 1,014.2 ml @ 100 mls/ hr Q24H IV 05/13/17 16:30 06/12/17 16:29 05/13/17 18:37 Metoclopramide HCl (Reglan) 5 mg Q6H PRN ORAL Nausea & Vomiting 05/13/17 14:30 06/12/17 14:29 05/14/17 10:32 Ondansetron HCl (Zofran) 4 mg Q6H PRN IVP Nausea & Vomiting 05/13/17 14:30 06/12/17 14:29 05/14/17 08:41 Pantoprazole (Protonix) 40 mg DAILY ORAL 05/14/17 09:00 06/13/17 08:59 05/14/17 08:41 Thiamine HCl 100 mg/Dextrose 111 ml @ 222 mls/hr Q24H IVPB 05/14/17 08:00 06/13/17 07:59 05/14/17 08:41 Trazodone HCl (Desyrel) 50 mg BEDTIME ORAL 05/14/17 21:00 06/13/17 20:59 Assessment/Plan Status: unchanged Assessment/Plan alcohol withdrawal alcohol dependence valium 10mg q 2hr/prn benadryl 50mg po q 6hr trazadone 50mg qhs Marty Ribeiro M.D. May 14, 2017 13:11
[2017-05-14] MEDS: chlordiazePOXIDE 25mg Cap ORAL PRN (17:50)
[2017-05-14] MEDS: Folic Acid 1 MG, Magnesium Sulfate 2,000 MG, Multivitamin - 12 Injection 10 ML in NS w/... IV SCH (18:11)
--- NOTE | 2017-05-14 18:45 | History and Physical Report ---
DATE OF ADMISSION: 05/13/2017 SOURCE OF INFORMATION: Patient and EMR. HISTORY OF PRESENT ILLNESS: The patient is a pleasant 32-year-old, who presented with aggravated nausea, vomitus for at least 5 days. She reported that she was not able to put even the liquids. She denies any diarrhea. Denies any fever. Denies any severe lower abdominal pain. Denies any vaginal discharge. REVIEW OF SYSTEMS: All 12 elements of review of systems reviewed. Pertinent positive and negative as above. PAST MEDICAL HISTORY: Alcohol problem (details unknown), psychiatric problem. ALLERGIES: To amoxicillin and penicillin. FAMILY HISTORY: Reviewed and noncontributory. SOCIAL HISTORY: The patient lives by herself. Denies any smoking, tobacco, drug abuse or illicit drug abuse. The patient reported is taking one drink daily, thus clarifying the quantity. CURRENT HOSPITAL MEDICATIONS: Including but not limited to trazodone, thiamine, lorazepam 1 mg p.o. q.8 h., Lexapro 20 mg daily, BuSpar 10 mg 3 times a day, Abilify 5 mg p.o. at bedtime. PHYSICAL EXAMINATION: VITAL SIGNS: Blood pressure 120/80, temperature 98.2, pulse oximetry 98% on room air, pulse rate 85. HEAD AND NECK: Atraumatic, normocephalic. CHEST: Clear to auscultation. No wheezes, no crackles. ABDOMEN: Positive for tenderness in the upper aspect, negative for rebound tenderness. NEUROLOGY: The patient is awake, alert and oriented x3. No gross cranial nerve deficits. HEART: S1 and S2. Regular rate and rhythm. Negative for S3. Negative S4. MUSCULOSKELETAL: No gross focal motor deficit. No edema. PSYCHIATRIC: Mood and affect is anxious. LABORATORY DATA: Dated 05/13/2017 shows WBC 13.1, hemoglobin of 14.7, platelets 342,000. Sodium 141, potassium 3.9, BUN 12, and creatinine 0.7. Urinalysis is unremarkable. Urine alcohol level is less than 3. ASSESSMENT AND PLAN: 1. Acute gastritis - nonspecific. 2. Leukocytosis. 3. Anxiety/depression. 4. Gastrointestinal deep venous thrombosis prophylaxis - the patient is ambulating. PLAN OF CARE: We will keep the patient NPO. Continue with conservative management. Resume the patient's outpatient medications. COMMENTS: The time of this area attendant does not reflect the actual time of encounter that occurred on 05/13/2017. Merrill Grover M.D. DR: BREONNA JOB#: [id number] CC: QASIM
[2017-05-14 20:33] VITALS: BP 124/75
[2017-05-14] MEDS ORDERED: TraZODone 50mg tab ORAL SCH (21:00)
[2017-05-15] VITALS: BP 121/64
[2017-05-15 04:00] VITALS: BP 131/81
[2017-05-15] MEDS: chlordiazePOXIDE 25mg Cap ORAL PRN (04:33)
[2017-05-15] MEDS: Thiamine HCl 100 MG in D5W 110 ML IVPB SCH (08:35)
[2017-05-15 09:00] VITALS: BP 129/79
[2017-05-15] MEDS ORDERED: D5 1/2NS 1,000 ML IV SCH (09:30)
[2017-05-15 11:40] LABS: BASOPHILS % (AUTO) 0.7 % (0.0-2.0); EOSINOPHILS % (AUTO) 0.2 % (0.0-3.0); HEMATOCRIT 37.2 % (37.0-47.0); HEMOGLOBIN 13.2 G/DL (12.0-16.0); LYMPHOCYTES % (AUTO) 21.6 % (20.0-45.0); MEAN CORPUSCULAR VOLUME 92 FL (80-99); MONOCYTES % (AUTO) 5.9 % (1.0-10.0); NEUTROPHILS % (AUTO) 71.5 % (45.0-75.0); PLATELET COUNT 239 K/UL (150-450); RED BLOOD COUNT 4.05 M/UL (4.20-5.40); RED CELL DISTRIBUTION WIDTH 10.5 % (11.6-14.8); WHITE BLOOD COUNT 8.8 K/UL (4.8-10.8)
--- NOTE | 2017-05-15 11:41 | General Progress Note ---
Assessment/Plan Problem List: (1) Gastritis ICD Codes: K29.70 - Gastritis, unspecified, without bleeding SNOMED: 1692641 Qualifiers: Qualified Codes: K29.20 - Alcoholic gastritis without bleeding (2) Alcohol withdrawal ICD Codes: F10.239 - Alcohol dependence with withdrawal, unspecified SNOMED: 691322865 Qualifiers: Qualified Codes: F10.239 - Alcohol dependence with withdrawal, unspecified (3) Depressed affect ICD Codes: R45.89 - Other symptoms and signs involving emotional state SNOMED: 004167417 (4) Intractable vomiting with nausea ICD Codes: R11.2 - Nausea with vomiting, unspecified SNOMED: 855846573 Qualifiers: Qualified Codes: R11.2 - Nausea with vomiting, unspecified (5) ETOH abuse ICD Codes: F10.10 - Alcohol abuse, uncomplicated SNOMED: 30526827 Assessment/Plan start IVF add reglan for nausea increase zofran to Q4 fu labs Subjective ROS Limited/Unobtainable: Yes - c/o nausea abd pain and vomiting Allergies: Coded Allergies: AMOXICILLIN (Verified Allergy, Unknown, 01/10/17) PENICILLINS (Verified Allergy, Unknown, 01/10/17) Objective Last 24 Hour Vital Signs Date Time Temp Pulse Resp B/P (MAP) Pulse Ox O2 Delivery O2 Flow Rate FiO2 05/15/17 09:00 98.2 63 18 129/79 99 98.2 05/15/17 04:00 98.4 59 20 131/81 98 98.4 05/15/17 00:00 98.4 64 18 121/64 97 Room Air 98.4 05/14/17 20:33 98.9 61 18 124/75 100 Room Air 98.9 05/14/17 11:42 92.9 62 16 126/77 98 Room Air 92.9 Intake and Output 05/14/17 05/15/17 19:00 07:00 Intake Total 770 ml 1140 ml Balance 770 ml 1140 ml Intake Oral 770 ml 240 ml IV Total 900 ml # Voids 3 2 Laboratory Tests 05/15/17 11:25: White Blood Count [Pending], Red Blood Count [Pending], Hemoglobin [Pending], Hematocrit [Pending], Mean Corpuscular Volume [Pending], Mean Corpuscular Hemoglobin [Pending], Mean Corpuscular Hemoglobin Concent [Pending], Red Cell Distribution Width [Pending], Platelet Count [Pending], Mean Platelet Volume [ Pending], Neutrophils (%) (Auto) [Pending], Lymphocytes (%) (Auto) [Pending], Monocytes (%) (Auto) [Pending], Eosinophils (%) (Auto) [Pending], Basophils (%) (Auto) [Pending], Sodium Level [Pending], Potassium Level [Pending], Chloride Level [Pending], Carbon Dioxide Level [Pending], Blood Urea Nitrogen [Pending], Creatinine [Pending], Estimat Glomerular Filtration Rate [Pending], Glucose Level [Pending], Calcium Level [Pending], Phosphorus Level [Pending], Magnesium Level [Pending] Height (Feet): 5 Height (Inches): 5.00 Weight (Pounds): 110 General Appearance: alert EENT: normal ENT inspection Neck: supple Cardiovascular: normal rate Respiratory/Chest: lungs clear Abdomen: soft, tender Extremities: non-tender LADY MATTHEWS May 15, 2017 11:41
[2017-05-15 12:00] VITALS: BP 101/66
[2017-05-15 12:03] LABS: ANION GAP 10 mmol/L (5-15); BLOOD UREA NITROGEN 5 mg/dL (7-18); CALCIUM 7.6 MG/DL (8.5-10.1); CARBON DIOXIDE 26 MMOL/L (21-32); CHLORIDE 103 MMOL/L (98-107); CREATININE 0.6 MG/DL (0.55-1.30); PHOSPHORUS 2.5 MG/DL (2.5-4.9); POTASSIUM 3.3 MMOL/L (3.5-5.1); SODIUM 139 MMOL/L (136-145)
--- NOTE | 2017-05-15 15:22 | General Progress Note ---
Assessment/Plan Assessment/Plan alcohol w/d alcohol dependence -cont Valium -cont Librium Subjective Date patient seen: May 15, 2017 Neurologic/Psychiatric: Reports: anxiety, depressed, emotional problems Allergies: Coded Allergies: AMOXICILLIN (Verified Allergy, Unknown, 01/10/17) PENICILLINS (Verified Allergy, Unknown, 01/10/17) Subjective tolerating food less anxious Objective Last 24 Hour Vital Signs Date Time Temp Pulse Resp B/P (MAP) Pulse Ox O2 Delivery O2 Flow Rate FiO2 05/15/17 12:00 97.5 67 18 101/66 100 97.5 05/15/17 09:00 98.2 63 18 129/79 99 98.2 05/15/17 04:00 98.4 59 20 131/81 98 98.4 05/15/17 00:00 98.4 64 18 121/64 97 Room Air 98.4 05/14/17 20:33 98.9 61 18 124/75 100 Room Air 98.9 Intake and Output 05/14/17 05/15/17 19:00 07:00 Intake Total 770 ml 1140 ml Balance 770 ml 1140 ml Intake Oral 770 ml 240 ml IV Total 900 ml # Voids 3 2 Laboratory Tests 05/15/17 11:25: White Blood Count 8.8, Red Blood Count 4.05L, Hemoglobin 13.2, Hematocrit 37.2, Mean Corpuscular Volume 92, Mean Corpuscular Hemoglobin 32.7H, Mean Corpuscular Hemoglobin Concent 35.6, Red Cell Distribution Width 10.5L, Platelet Count 239, Mean Platelet Volume 5.8L, Neutrophils (%) (Auto) 71.5, Lymphocytes (%) (Auto) 21.6, Monocytes (%) (Auto) 5.9, Eosinophils (%) (Auto) 0.2, Basophils (%) (Auto ) 0.7, Sodium Level 139, Potassium Level 3.3L, Chloride Level 103, Carbon Dioxide Level 26, Anion Gap 10, Blood Urea Nitrogen 5L, Creatinine 0.6, Estimat Glomerular Filtration Rate > 60, Glucose Level 107H, Calcium Level 7.6L, Phosphorus Level 2.5, Magnesium Level 2.4 Height (Feet): 5 Height (Inches): 5.00 Weight (Pounds): 110 General Appearance: no apparent distress, alert Neurologic: oriented x 3, responsive, normal mood/affect Farhadi,Pantea M.D. May 15, 2017 15:22
[2017-05-15 16:38] VITALS: BP 98/65
[2017-05-15] MEDS ORDERED: Tubing IV Secondary IV ONE (17:54)
--- NOTE | 2017-05-16 10:34 | Discharge Summary ---
Discharge Summary Discharge Summary Discharge Summary DATE OF ADMISSION: 05/13/2017 DATE OF DISCHARGE: 05/15/2017 REASON FOR ADMISSION: 32 years old female with apst medical history of alcohol abuse, anxiety, depression presented to emergency department with intractable nausea and vomiting along with anxiety for several days. Patient felt that she was withdrawing from alcohol. Patient with prior history of alcohol abuse and dependency. She reported drinking 2 bottles of champagne a day. Patient had a sponsor. Patient recently gone through the break out which led to heavy drinking . Patient reported projectile vomiting with nausea, unable to keep down fluids or food. Patient reported intermittent epigastric pain without radiation. She denied any fevers, dyspnea chest pain or shortness of breath. Patient denied suicidal ideation but felt depressed. She felt anxious and shaky. Upon evaluation in emergency department WBC 13.1, hemoglobin and hematocrit stable, liver enzyme within normal limits, electrolytes stable. Urinalysis with no evidence of UTI. Toxicology screen negative. Serum alcohol level less than 3. Patient was given in emergency department intravenous fluid and antiemetic , however patient continued feeling nauseous and unable to drink fluids. Patient was admitted for further management with diagnosis of acute gastritis, alcohol withdrawal, leukocytosis, alcohol abuse. HOSPITAL COURSE: Patient admitted to medical surgical floor. GI and psychiatric consults were requested. Patient started on IV fluids with electrolytes and vitamin replacements including multivitamin, ,folate, thiamine and magnesium. Patient initially was kept nothing by mouth, then slowly started on clear liquid diet and was advanced as tolerated. Symptomatic treatments provided. Antiemetic provided as needed. Patient was on Librium as needed for withdrawal symptoms. Patient was counseled on alcohol cessation. Psychiatrist diagnosed patient with the alcohol abuse with dependency. Psychiatric medications were continued. Patient clinically improved, was able to tolerate diet, nausea and vomiting resolved. Leukocytosis resolved, likely reactive due to intractable nausea and vomiting. Patient was stable for discharge home. FINAL DIAGNOSES: 1. Acute gastritis 2. Alcohol withdrawal 3. ETOH abuse with dependency 4. Anxiety with depression. DISCHARGE MEDICATIONS: See Medication Reconciliation list. DISCHARGE INSTRUCTIONS: Patient was discharged home. Patient to follow-up with a primary care provider. Patient was strongly advised abstinence from alcohol. I have been assigned to dictate discharge summary for this account. I was not involved in the patient's management. Jaimee Moreno NP ([place]) May 16, 2017 10:34
== END 2017-05-15 17:55 | disposition home or self-care (01) | DRG 897 ==
LOC: EDBD 06:58 → EMR 07:18 → 4E 11:36 → EDBEDREQ 11:53
DX: F10.239 Alcohol dependence with withdrawal, unspecified (principal); R16.0 Hepatomegaly, not elsewhere classified; K29.00 Acute gastritis without bleeding; D72.829 Elevated white blood cell count, unspecified; F41.8 Other specified anxiety disorders; Z88.0 Allergy status to penicillin; Y90.0 Blood alcohol level of less than 20 mg/100 ml
CPT/HCPCS: 36415; 80048; 80053; 80307; 80329; 81003; 83690; 83735; 84100; 85007; 85025; 85610; 85730; 87081; 99285; J2405; J2765

== ENCOUNTER 2018-08-19 19:28 | Inpatient (IN) | payer BC, OTHER ==
[~2018-08-19] VITALS: Ht 162.6 cm; Wt 49.9 kg
[~2018-08-19 19:28] MED LIST changes: +ABILIFY2 MG ORAL; +BUSPIRONE HCL10 M1 ORAL; +LEXAPRO20 MG ORAL; +TRAZODONE HCL50 MG ORAL
--- NOTE | 2018-08-19 19:35 | NUR ---
ED Nurse Note: PT WALKED IN C/O OD, PT STATES SHE TOOK ABILIFY 28 PILLS BY ACCIDENT, DENIES SI. AO4. NAD. VSS
--- NOTE | 2018-08-19 19:41 | NUR ---
ED Nurse Note: Pt resides at [facility]; [address] [place] [address],[phone]. Interior Decorator Paperhanging Jairo Morrisoncrowevelia, states she may return at time of discharge.
--- NOTE | 2018-08-19 19:55 | NUR ---
ED Nurse Note: iv access established. blood collected sent down to lab.
--- NOTE | 2018-08-19 20:05 | Emergency Room Report ---
History of Present Illness General Chief Complaint: Overdose Source: Patient Present Illness HPI Patient is a 33-year-old female who presents after reported medication overdose. Patient had prior history of alcohol abuse. She reports having taken multiple doses of Abilify. Patient states matthew she took 28 tablets. Patient states that she was attempting to harm herself and feeling suicidal. She had recent heavy alcohol intake. Allergies: Coded Allergies: AMOXICILLIN (Verified Allergy, Unknown, 01/10/17) PENICILLINS (Verified Allergy, Unknown, 01/10/17) Patient History Past Medical History: see triage record Now: No Reviewed Nursing Documentation: PMH: Agreed; PSxH: Agreed Nursing Documentation-PMH Past Medical History: No History, Except For Hx Cardiac Problems: No Hx Hypertension: No Hx Pacemaker: No Hx Asthma: No Hx COPD: No Hx Diabetes: No Hx Cancer: No Hx Gastrointestinal Problems: No Hx Dialysis: No History Of Psychiatric Problem: Yes - BIPOLAR Hx Neurological Problems: No Hx Cerebrovascular Accident: No Hx Seizures: No Review of Systems All Other Systems: negative except mentioned in HPI Physical Exam Vital Signs Date Time Temp Pulse Resp B/P (MAP) Pulse Ox O2 Delivery O2 Flow Rate FiO2 08/19/18 19:31 98.2 96 18 108/77 (87) 99 Room Air Sp02 EP Interpretation: reviewed, normal General Appearance: alert/responsive, no apparent distress, GCS 15, non-toxic Head: atraumatic Eyes: PERRL, lids + conjunctiva normal ENT: hearing intact, no angioedema Neck: supple/symm/no masses, no meningismus Respiratory: effort normal, no wheezing, chest symmetrical Cardiovascular: regular rate, rhythm, no edema Cardiovascular #2: 2+ carotid (R), 2+ carotid (L), 2+ dorsalis pedis (R), 2+ dorsalis pedis (L) Gastrointestinal: non-tender, no mass, non-distended, no rebound/guarding, normal bowel sounds Musculoskeletal: gait & station normal, strength & tone normal, normal ROM, non -tender Neurologic: normal inspection, CN II-XII intact, oriented x3, sensory intact, other - slurred speech Skin: no rash, well hydrated Lymphatic: normal inspection Medical Decision Making Diagnostic Impression: Primary Impression: Alcohol intoxication Additional Impression: Medication overdose ER Course Patient presented for increased alcohol use as well as possible overdose on medications. Differential diagnosis include was not limited to alcohol intoxication, psychosis, depression among others. Because of complexity of patient's case laboratory testing and imaging studies were ordered. Patient noted to have been intoxicated with alcohol. She is noted to be slurring her speech. EKG interpreted by me showed normal sinus rhythm without acute ST or T wave changes. Patient was noted to have some slight QT prolongation. Patient was observed in the emergency department. Patient refused IV fluids. Patient did have prior history of alcohol abuse as well as alcohol withdrawal. Patient was endorsed to Dr. Veras pending sobering. Patient will likely require a repeat EKG as well as further monitoring due to possible overdose of Abilify. Contrary to patient provided history, the dosage of Abilify that was consumed appears to be questionable as patient's bottle had 48 tablets out of 60. Labs Test 08/19/18 19:55 08/19/18 20:47 White Blood Count 10.2 K/UL (4.8-10.8) Red Blood Count 4.42 M/UL (4.20-5.40) Hemoglobin 14.7 G/DL (12.0-16.0) Hematocrit 41.7 % (37.0-47.0) Mean Corpuscular Volume 94 FL (80-99) Mean Corpuscular Hemoglobin 33.3 PG (27.0-31.0) Mean Corpuscular Hemoglobin Concent 35.4 G/DL (32.0-36.0) Red Cell Distribution Width 10.1 % (11.6-14.8) Platelet Count 298 K/UL (150-450) Mean Platelet Volume 5.4 FL (6.5-10.1) Neutrophils (%) (Auto) 44.0 % (45.0-75.0) Lymphocytes (%) (Auto) 48.7 % (20.0-45.0) Monocytes (%) (Auto) 4.2 % (1.0-10.0) Eosinophils (%) (Auto) 2.5 % (0.0-3.0) Basophils (%) (Auto) 0.5 % (0.0-2.0) Sodium Level 141 MMOL/L (136-145) Potassium Level 3.9 MMOL/L (3.5-5.1) Chloride Level 105 MMOL/L (98-107) Carbon Dioxide Level 21 MMOL/L (21-32) Anion Gap 15 mmol/L (5-15) Blood Urea Nitrogen 11 mg/dL (7-18) Creatinine 0.8 MG/DL (0.55-1.30) Estimat Glomerular Filtration Rate > 60 mL/min (>60) Glucose Level 114 MG/DL (74-106) Calcium Level 8.8 MG/DL (8.5-10.1) Total Bilirubin 0.2 MG/DL (0.2-1.0) Aspartate Amino Transf (AST/SGOT) 22 U/L (15-37) Alanine Aminotransferase (ALT/SGPT) 22 U/L (12-78) Alkaline Phosphatase 47 U/L (46-116) Total Protein 7.9 G/DL (6.4-8.2) Albumin 4.5 G/DL (3.4-5.0) Globulin 3.4 g/dL Albumin/Globulin Ratio 1.3 (1.0-2.7) Salicylates Level 2.7 ug/mL (2.8-20) Acetaminophen Level < 2 MCG/ML (10-30) Serum Alcohol 266 mg/dL Urine Color Pale yellow Urine Appearance Clear Urine pH 5 (4.5-8.0) Urine Specific [place] 1.005 (1.005-1.035) Urine Protein Negative (NEGATIVE) Urine Glucose (UA) Negative (NEGATIVE) Urine Ketones Negative (NEGATIVE) Urine Blood Negative (NEGATIVE) Urine Nitrite Negative (NEGATIVE) Urine Bilirubin Negative (NEGATIVE) Urine Urobilinogen Normal MG/DL (0.0-1.0) Urine Leukocyte Esterase Negative (NEGATIVE) Urine HCG, Qualitative Negative (NEGATIVE) Urine Opiates Screen Negative (NEGATIVE) Urine Barbiturates Screen Negative (NEGATIVE) Phencyclidine (PCP) Screen Negative (NEGATIVE) Urine Amphetamines Screen Negative (NEGATIVE) Urine Benzodiazepines Screen Negative (NEGATIVE) Urine Cocaine Screen Negative (NEGATIVE) Urine Marijuana (THC) Screen Negative (NEGATIVE) EKG Diagnostic Results Rate: normal Rhythm: NSR ST Segments: no acute changes Last Vital Signs Date Time Temp Pulse Resp B/P (MAP) Pulse Ox O2 Delivery O2 Flow Rate FiO2 08/19/18 19:31 98.2 96 18 108/77 (87) 99 Room Air Status: improved Disposition: PLACE IN OBSERVATION Condition: Stable Joe Roy MD Aug 19, 2018 20:05
[2018-08-19] MEDS ORDERED: Thiamine HCl 100 MG in D5W 55 ML IVPB ONE (20:15)
--- NOTE | 2018-08-19 20:24 | NUR ---
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 Slow to symptoms; monitor for 6-8 hours, repeat EKG in 4 hours; give charcoal 25-50 gms; supportive care.
[2018-08-19 20:28] LABS: BASOPHILS % (AUTO) 0.5 % (0.0-2.0); EOSINOPHILS % (AUTO) 2.5 % (0.0-3.0); HEMATOCRIT 41.7 % (37.0-47.0); HEMOGLOBIN 14.7 G/DL (12.0-16.0); LYMPHOCYTES % (AUTO) 48.7 % (20.0-45.0); MEAN CORPUSCULAR VOLUME 94 FL (80-99); MONOCYTES % (AUTO) 4.2 % (1.0-10.0); PLATELET COUNT 298 K/UL (150-450); RED BLOOD COUNT 4.42 M/UL (4.20-5.40); RED CELL DISTRIBUTION WIDTH 10.1 % (11.6-14.8); WHITE BLOOD COUNT 10.2 K/UL (4.8-10.8)
[2018-08-19 20:31] VITALS: BP 108/77
[2018-08-19 20:31] LABS: ANION GAP 15 mmol/L (5-15); BLOOD UREA NITROGEN 11 mg/dL (7-18); CALCIUM 8.8 MG/DL (8.5-10.1); CARBON DIOXIDE 21 MMOL/L (21-32); CHLORIDE 105 MMOL/L (98-107); CREATININE 0.8 MG/DL (0.55-1.30); POTASSIUM 3.9 MMOL/L (3.5-5.1); SODIUM 141 MMOL/L (136-145)
[2018-08-19 20:36] LABS: ALANINE AMINOTRANSFERASE 22 U/L (12-78); ALBUMIN 4.5 G/DL (3.4-5.0); ALBUMIN/GLOBULIN RATIO 1.3 (1.0-2.7); ALKALINE PHOSPHATASE 47 U/L (46-116); ASPARTATE AMINO TRANSFERASE 22 U/L (15-37); BILIRUBIN,TOTAL 0.2 MG/DL (0.2-1.0)
[2018-08-19 20:59] LABS: APPEARANCE,URINE CLEAR; BILIRUBIN, URINE NEGATIVE (NEGATIVE); COLOR,URINE PALE YELLOW; GLUCOSE, URINE (UA) NEGATIVE (NEGATIVE); KETONES,URINE NEGATIVE (NEGATIVE); LEUKOCYTE ESTERASE ,URINE NEGATIVE (NEGATIVE); NITRITE,URINE NEGATIVE (NEGATIVE); PH,URINE 5 (4.5-8.0); PROTEIN,URINE NEGATIVE (NEGATIVE); UROBILINOGEN,URINE NORMAL MG/DL (0.0-1.0)
[2018-08-19 22:00] VITALS: BP 91/65
--- NOTE | 2018-08-19 22:50 | NUR ---
ED Nurse Note: repeat ekg completed; nsr. pt ao4. nad. vss.
--- NOTE | 2018-08-19 23:10 | NUR ---
ED Nurse Note: Received call from Malachi, from Poison control, states that they will close the case.
[2018-08-19] MEDS ORDERED: D5NS 1000ml IV ONE ×2 (23:36)
[2018-08-20] VITALS (9 sets, daily range): BP systolic 85–104; BP diastolic 45–62
--- NOTE | 2018-08-20 | NUR ---
ED Nurse Note: PT REFUSED VRE CRE MRSA SWABS.
--- NOTE | 2018-08-20 00:25 | NUR ---
TRANSFER TO FLOOR: Patient transferred to [facility] 201-2 as ordered, per MD VANNA. Report given to JOHNSON PEARSON. BELONGIGNS LIST COMPLETED WITH RECEIVING RN. PATIENT IN STABLE CONDITION.
--- NOTE | 2018-08-20 02:14 | NUR ---
NURSE NOTES: rECEIVED PT FROM COVERING rn. pT ASLEEP BUT EASILY ARROUSABLE. Called and left a message with Dr. Grover for admission orders. He gave the following: - consult Quintin - NPO - D5Ns @ 100 - cbc/ cmp/ lithium panel in am - Heparin 5000 u - protonix 40 mg daily IV - ativan q6 2mg prn - tylenol 650 mg prn q6 Will input orders. Pt stated that she does not know what medications she takes at home. Bed in lowest position. Call light within reach. Pt answers questions appropriately. No signs of ALOC or seizures. SBP in the low 90's, heart rate SR-ST, otherwise VSS. No skin issues. Sitter at bedside. Will continue to monitor.
[2018-08-20] MEDS: D5NS 1,000 ML IV SCH ×2 (02:34→13:01)
[2018-08-20] MEDS: LORazepam Inj 2mg/ml 1ml IV PRN ×2 (06:12→13:44)
[2018-08-20 06:25] LABS: BASOPHILS % (AUTO) 2.6 % (0.0-2.0); EOSINOPHILS % (AUTO) 5.2 % (0.0-3.0); HEMOGLOBIN 13.5 G/DL (12.0-16.0); LYMPHOCYTES % (AUTO) 37.5 % (20.0-45.0); MEAN CORPUSCULAR VOLUME 96 FL (80-99); MONOCYTES % (AUTO) 7.7 % (1.0-10.0); NEUTROPHILS % (AUTO) 46.9 % (45.0-75.0); PLATELET COUNT 306 K/UL (150-450); RED BLOOD COUNT 4.08 M/UL (4.20-5.40); RED CELL DISTRIBUTION WIDTH 11.5 % (11.6-14.8); WHITE BLOOD COUNT 7.7 K/UL (4.8-10.8)
--- NOTE | 2018-08-20 06:27 | NUR ---
CASE MANAGEMENT: INITIAL REVIEW 33 YO F LUCIE FROM [facility] CC: OVERDOSE ON MULTIPLE DOSES OF ABILIFY PMHx: BIPOLAR SI:OVERDOSE. HYPOTENSION. T 98.2 HR 96 RR 18 B/P 108/77 SATS 99% ON RA GLU 114 IS: THIAMINE IV X1 NS BOLUS X2 PATIENT ADMITTED TO TELE (OBS) 08/19/2018 @ 2335 DCP: PATIENT TO BE DISCHARGED TO HOME ONCE MEDICALLY CLEARED. PLAN OF CARE: PSYCH CONSULT SITTER AT BEDSIDE 08/20/2018 SI:OVERDOSE. HYPOTENSION. T 98 HR 86 RR 18 B/P 98/52 SATS 96% ON RA AML PENDING IS: IVF @ 100 mL/HR PROTONIX IV QD TELE STATUS DCP: PATIENT TO BE DISCHARGED TO HOME ONCE MEDICALLY CLEARED. PLAN OF CARE: PSYCH CONSULT >> PENDING SITTER AT BEDSIDE NPO Addendum: 08/20/18 at 0634 by Hiral Mujica CM INTERQUAL MET
[2018-08-20 07:04] LABS: ALANINE AMINOTRANSFERASE 7 U/L (12-78); ALBUMIN 3.9 G/DL (3.4-5.0); ALBUMIN/GLOBULIN RATIO 1.3 (1.0-2.7); ALKALINE PHOSPHATASE 42 U/L (46-116); ASPARTATE AMINO TRANSFERASE 9 U/L (15-37); BILIRUBIN,TOTAL 0.1 MG/DL (0.2-1.0); BLOOD UREA NITROGEN 11 mg/dL (7-18); CALCIUM 8.3 MG/DL (8.5-10.1); CARBON DIOXIDE 27 MMOL/L (21-32); CHLORIDE 107 MMOL/L (98-107); CREATININE 0.8 MG/DL (0.55-1.30); POTASSIUM 3.6 MMOL/L (3.5-5.1); SODIUM 143 MMOL/L (136-145)
--- NOTE | 2018-08-20 07:28 | NUR ---
HAND-OFF: Report given to JOHNSON Malagon. Pt is stable
--- NOTE | 2018-08-20 07:40 | NUR ---
NURSE NOTES: Received report from JOHNSON Carson. patient was asleep. Sitter is at bedside. Awaked by name. AAO x 4. Patient denies pain at this time. Patient is on room air breathing even and unlabored. Patient is on monitoring and evaluation advisor. Patient has left hand 20g IV site that is patent and intact running 1/2 NS @ 100ml/hr. Will continue plan of care. Addendum: 08/20/18 at 0756 by Manas Worthington RN Patient stated she wants to leave. Replied that Dr. Ribeiro is consulted and the needs to be completed today. Patient states she will wait.
[2018-08-20] MEDS: Heparin 5000 units/ml inj SUBQ SCH ×2 (09:00→20:27)
[2018-08-20] MEDS: Pantoprazole Inj IVP SCH (09:17)
--- NOTE | 2018-08-20 11:11 | NUR ---
Social Work This SW received verbal notification from badger distiller operator regarding patient overdose, with an attempt to harm self. Pending Psychiatry (Dr. Ribeiro) to evaluate; patient has a sitter at bedside to maintain safety. This SW met with patient who remains alert/oriented x4, independent. 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 Patient explains she plans to return to her sober living ([facility]) and will follow up with her therapist through the [facility]. SW to follow further, as needed. Pending eval. from Psychiatry at this time.
--- NOTE | 2018-08-20 13:46 | History & Physical ---
History and Physical History & Physicial seen and examined. Full Dictation in progress Merrill Grover MD Aug 20, 2018 13:46
--- NOTE | 2018-08-20 13:48 | General Progress Note ---
Assessment/Plan Assessment/Plan: Full Dict in progress 1- Acute Toxic ecephalopathy 2- SI 3- Psych 4- ETOH abuse Plan: Pending psych eval Start librium, MVI Subjective Allergies: Coded Allergies: AMOXICILLIN (Verified Allergy, Unknown, 01/10/17) PENICILLINS (Verified Allergy, Unknown, 01/10/17) Objective Last 24 Hour Vital Signs Date Time Temp Pulse Resp B/P (MAP) Pulse Ox O2 Delivery O2 Flow Rate FiO2 08/20/18 09:00 Room Air 08/20/18 08:00 97.9 81 18 101/53 (69) 100 08/20/18 07:39 98 08/20/18 05:00 98.0 86 18 98/52 (67) 96 08/20/18 04:00 93 08/20/18 02:01 Room Air 08/20/18 01:00 97.9 94 18 104/62 (76) 08/20/18 00:47 96 08/20/18 00:40 98.2 98 18 94/55 99 Room Air 08/20/18 00:00 98.2 98 18 94/55 99 Room Air 08/19/18 22:00 98.2 115 18 91/65 99 Room Air 08/19/18 20:31 98.2 103 18 108/77 99 Room Air 08/19/18 20:31 103 18 Room Air 08/19/18 19:31 98.2 96 18 108/77 (87) 99 Room Air Intake and Output 08/19/18 08/20/18 19:00 07:00 # Voids 1 Laboratory Tests 08/19/18 19:55: White Blood Count 10.2, Red Blood Count 4.42, Hemoglobin 14.7, Hematocrit 41.7, Mean Corpuscular Volume 94, Mean Corpuscular Hemoglobin 33.3H, Mean Corpuscular Hemoglobin Concent 35.4, Red Cell Distribution Width 10.1L, Platelet Count 298, Mean Platelet Volume 5.4L, Neutrophils (%) (Auto) 44.0L, Lymphocytes (%) (Auto) 48.7H, Monocytes (%) (Auto) 4.2, Eosinophils (%) (Auto) 2.5, Basophils (%) (Auto ) 0.5, Sodium Level 141, Potassium Level 3.9, Chloride Level 105, Carbon Dioxide Level 21, Anion Gap 15, Blood Urea Nitrogen 11, Creatinine 0.8, Estimat Glomerular Filtration Rate > 60, Glucose Level 114H, Calcium Level 8.8, Total Bilirubin 0.2, Aspartate Amino Transf (AST/SGOT) 22, Alanine Aminotransferase ( ALT/SGPT) 22, Alkaline Phosphatase 47, Total Protein 7.9, Albumin 4.5, Globulin 3.4, Albumin/Globulin Ratio 1.3, Salicylates Level 2.7L, Acetaminophen Level < 2L, Serum Alcohol 266 08/19/18 20:47: Urine Color Pale yellow, Urine Appearance Clear, Urine pH 5, Urine Specific [place] 1.005, Urine Protein Negative, Urine Glucose (UA) Negative, Urine Ketones Negative, Urine Blood Negative, Urine Nitrite Negative, Urine Bilirubin Negative, Urine Urobilinogen Normal, Urine Leukocyte Esterase Negative, Urine HCG, Qualitative Negative, Urine Opiates Screen Negative, Urine Barbiturates Screen Negative, Phencyclidine (PCP) Screen Negative, Urine Amphetamines Screen Negative, Urine Benzodiazepines Screen Negative, Urine Cocaine Screen Negative, Urine Marijuana (THC) Screen Negative 08/20/18 04:50: White Blood Count 7.7, Red Blood Count 4.08L, Hemoglobin 13.5, Hematocrit 39.0, Mean Corpuscular Volume 96, Mean Corpuscular Hemoglobin 33.0H, Mean Corpuscular Hemoglobin Concent 34.5, Red Cell Distribution Width 11.5L, Platelet Count 306, Mean Platelet Volume 4.9L, Neutrophils (%) (Auto) 46.9, Lymphocytes (%) (Auto) 37.5, Monocytes (%) (Auto) 7.7, Eosinophils (%) (Auto) 5.2H, Basophils (%) (Auto ) 2.6H, Sodium Level 143, Potassium Level 3.6, Chloride Level 107, Carbon Dioxide Level 27, Blood Urea Nitrogen 11, Creatinine 0.8, Estimat Glomerular Filtration Rate > 60, Glucose Level 95, Calcium Level 8.3L, Total Bilirubin 0.1L , Aspartate Amino Transf (AST/SGOT) 9L, Alanine Aminotransferase (ALT/SGPT) 7L, Alkaline Phosphatase 42L, Total Protein 6.8, Albumin 3.9, Globulin 2.9, Albumin/ Globulin Ratio 1.3, [place] Level [Pending] Height (Feet): 5 Height (Inches): 4.00 Weight (Pounds): 110 Merrill Grover MD Aug 20, 2018 13:48
--- NOTE | 2018-08-20 19:00 | NUR ---
NURSE NOTES: Patient blood pressure was 85/45 and was checked twice on each arm Encourage patient to drink fluids. Rechecked blood pressure after ten minutes, it was 91/56.
--- NOTE | 2018-08-20 19:10 | NUR ---
HAND-OFF: Report given to JOHNSON Cha. Endorsed about the blood pressure reading. Called Dr. Grover about blood pressure reading and awaiting call back.
--- NOTE | 2018-08-20 19:20 | NUR ---
NURSE NOTES: received pt from JOHNSON Malagon. pt hypotensive, BP 81/48. Manas ORNELAS tried to reach Dr Grover, waiting on 's callback. pt in bed stable asymptomatic, AOx4. sitter at bed side. bed locked and lowest position. side rail x2. call light within reach. will continue to monitor VS.
--- NOTE | 2018-08-20 20:30 | NUR ---
NURSE NOTES: Reilly give order 500 ml NS bolus once. order noted and carried out.
--- NOTE | 2018-08-20 21:45 | History and Physical Report ---
DATE OF ADMISSION: 08/19/2018 SOURCE OF INFORMATION AND HISTORY OF PRESENT ILLNESS: The patient is a 33-year-old female with history of alcoholism, currently living in a sober living. The patient took too much of her psychiatric medication as well as alcohol with the suicidal attempt. At the time of evaluation, the patient is upset about her action. She denies chest pain or shortness of breath. She is talking in full sentences. REVIEW OF SYSTEMS: The patient denies any nausea, vomitus, headache. Remainder of review of system, all 14 elements of review of systems reviewed and pertinent positive and negative as above. PAST SURGICAL HISTORY: Denies. ALLERGIES: Amoxicillin and penicillin. FAMILY HISTORY: Reviewed. Noncontributory. MEDICATIONS: Current hospital medications including, but not limited to, Abilify, buspirone, chlordiazepoxide. PAST MEDICAL HISTORY: Depression, substance abuse, currently on rehabilitation, alcoholism. SOCIAL HISTORY: The patient reported that she is originally from [place]. She is single. No children. PHYSICAL EXAMINATION: VITAL SIGNS: Blood pressure 100/80, temperature 98.2, pulse oximetry 98% on room air, pulse rate 110, and respiratory rate 18. HEAD AND NECK: Atraumatic and normocephalic. CHEST: Clear to auscultation. HEART: S1, S2. Regular rate and rhythm. ABDOMEN: Soft. No organomegaly. MUSCULOSKELETAL: No gross lateralized motor deficit. NEUROLOGIC: Awake, alert, and oriented x3. LABORATORY DATA: Laboratories dated August 19, WBC 10.4, hemoglobin 14.7, platelet count 298. Sodium 141, glucose 114. Serum alcohol 266, salicylate 2.7. ASSESSMENT: 1. Acute toxic encephalopathy. 2. Alcoholism. 3. Suicidal ideation. 4. Psychiatric disorder. 5. Abnormal blood sugar. 6. GI and DVT prophylaxis. PLAN OF CARE: We will consult Psychiatry. Continue with the multivitamin, thiamine, p.r.n. anxiolytic medication. Would monitor the patient's mental status. COMMENT: The time of this dictation does not reflect the actual time of encounter. Merrill Grover M.D. DR: NAVEEN JOB#: [id number] CC:
[2018-08-21] VITALS: BP 91/54
--- NOTE | 2018-08-21 | NUR ---
NURSE NOTES: pt in bed sleeping, sitter at bedside. will continue to monitor pt for any change in condition.
--- NOTE | 2018-08-21 03:15 | NUR ---
HAND-OFF: Report given to JOHNSON Rodriguez.sitter at bed sided,pt stable.
[2018-08-21 04:00] VITALS: BP 92/49
[2018-08-21 06:09] VITALS: BP 95/51
--- NOTE | 2018-08-21 06:10 | NUR ---
NURSE NOTES: Patient woke up c/o anxiety and requested anti anxiety medications. BP 95/51, informed patient that her BP is still too low and that the Ativan will drop it even more. Patient understood.
--- NOTE | 2018-08-21 07:32 | NUR ---
NURSE NOTES: Received report from Michael/RN, Patient is awake and alert, AAO x 4. Patient denies pain at this time. Patient is on room air breathing even and unlabored. Sitter is at bedside. Patient has left hand 20g IV site that is patent and intact. Bed in low position and locked. Call light within reach. Will continue plan of care.
[2018-08-21] MEDS: LORazepam Inj 2mg/ml 1ml IV PRN (07:52)
[2018-08-21 08:00] VITALS: BP 105/64
[2018-08-21] MEDS: Pantoprazole Inj IVP SCH (08:12)
[2018-08-21] MEDS: Heparin 5000 units/ml inj SUBQ SCH (08:14)
[2018-08-21] MEDS ORDERED: LORazepam 1mg tab ORAL PRN (11:45)
--- NOTE | 2018-08-21 11:50 | NUR ---
NURSE NOTES: Patient got off tele order and took a shower, tolerated well, No distress/SOB noted. Patient back to bed, resting comfortably.
[2018-08-21 12:00] VITALS: BP 113/72
--- NOTE | 2018-08-21 14:43 | NUR ---
CASE MANAGEMENT: REVIEW SI: OVERDOSE . HYPOTENSION T 98.1 HR 101 RR 19 BP 92/49 SAT 98% ROOM AIR IS: ATIVAN PO Q6HR PRN FOLIC ACID PO QD MV PO QD PROTONIX IV QD HEPARIN SUBQ Q12HR TELEMETRY UNIT STATUS DCP: PATIENT IS FROM [facility]
[2018-08-21 16:00] VITALS: BP 126/55
--- NOTE | 2018-08-21 19:05 | General Progress Note ---
Assessment/Plan Assessment/Plan: S: I am feeling anxious O: seems comfortable. denies pain or sob. PHYSICAL EXAMINATION:HEAD AND NECK: Atraumatic and normocephalic. CHEST: Clear to auscultation.HEART: S1, S2. Regular rate and rhythm. ABDOMEN: Soft. No organomegaly.MUSCULOSKELETAL: No gross lateralized motor deficit. NEUROLOGIC: Awake, alert, and oriented x3. LABORATORY DATA: Laboratories dated August 21 reviewed ASSESSMENT: 1. Acute toxic encephalopathy; Resolved 2. Alcoholism. 3. Suicidal ideation. 4. Psychiatric disorder. 5. Abnormal blood sugar. 6. GI and DVT prophylaxis. Plan: Pending psych eval StartMVI once cleared by psych. June fu as o/p Subjective Allergies: Coded Allergies: AMOXICILLIN (Verified Allergy, Unknown, 01/10/17) PENICILLINS (Verified Allergy, Unknown, 01/10/17) Objective Last 24 Hour Vital Signs Date Time Temp Pulse Resp B/P (MAP) Pulse Ox O2 Delivery O2 Flow Rate FiO2 08/21/18 16:00 103 08/21/18 16:00 98.3 99 24 126/55 (78) 97 08/21/18 12:00 84 08/21/18 12:00 98.1 101 19 113/72 (86) 96 08/21/18 09:00 Room Air 08/21/18 08:00 98.2 91 18 105/64 (78) 96 08/21/18 08:00 92 08/21/18 06:09 84 95/51 (66) 08/21/18 04:00 98.6 68 16 92/49 (63) 98 08/21/18 03:57 71 08/21/18 00:00 98.4 91 20 91/54 (66) 95 08/21/18 00:00 76 08/20/18 21:00 Room Air 08/20/18 20:03 98.4 69 20 98/56 (70) 96 08/20/18 20:00 69 08/20/18 20:00 71 08/20/18 19:10 97.3 84 20 91/56 (68) 98 Intake and Output 08/20/18 08/21/18 19:00 07:00 Intake Total 1000 ml 280 ml Balance 1000 ml 280 ml Intake Oral 280 ml IV Total 1000 ml # Voids 2 Height (Feet): 5 Height (Inches): 4.00 Weight (Pounds): 110 Merrill Grover MD Aug 21, 2018 19:04
--- NOTE | 2018-08-21 19:15 | NUR ---
NURSE NOTES: Dr. Grover came in to see the patient and has cleared the patient for discharge. Noted and carried out. Addendum: 08/23/18 at 0536 by BIPIN HARDING RN RN Late Entry
--- NOTE | 2018-08-21 19:28 | NUR ---
HAND-OFF: Report given to Aleena/RN, Patient is in stable condition, Endorsed plan of care.
--- NOTE | 2018-08-21 19:30 | NUR ---
NURSE NOTES: Received report from JOHNSON Velasquez, patient in stable condition, no acute distress noted, IV and shelter supervisor removed to prepare the patient for discharge. Two friends at bedside. Patient denies pain at this moment. Ambulatory. Able to make needs known
--- NOTE | 2018-08-21 19:34 | NUR ---
NURSE NOTES: Spoke to Jairo from [facility] regarding patient's discharge status. Was told, "I'll be there to pick her up."
--- NOTE | 2018-08-21 20:02 | NUR ---
NURSE NOTES: Patient was discharged to [facility] accompanied by Jairo from [facility] and primary RN via private vehicle without incident. No signs of acute distress noted; denies pain at this time. Vital signs stable upon discharge. Belongings list checked. Discharge packet given and explained to patient; verbalized understanding.
--- NOTE | 2018-08-22 03:15 | Consultation ---
DATE OF CONSULTATION: 08/20/2018 HISTORY OF PRESENT ILLNESS: This is a 33-year-old female, who I am well familiar from last admission. The patient has a history of alcohol dependence and substance use disorder and has been in various rehabs. The patient also has a history of substance use disorder. She currently resides in a sober living. The patient chews about 7 pills of Abilify with alcohol. The patient denied that this was a suicide attempt. However, she told the nurse that she took the pills because of her boyfriend was not attentive. PAST PSYCHIATRIC HISTORY: She has a history of depression and anxiety disorder. PAST MEDICAL HISTORY: Nonsignificant. ALLERGIES: No known drug allergies. SUBSTANCE ABUSE HISTORY: No known history of illicit drug use or alcohol. MENTAL STATUS EXAMINATION: The patient is alert and oriented times self, place, and situation. Mood is neutral. Affect is constricted. Congruent with mood. Thought process is concrete. Thought content, no suicidal or homicidal ideations. No psychotic symptoms. ASSESSMENT: Adams I Alcohol dependence. Anxiety disorder. Adams II Borderline personality traits. Adams III None. Adams II Low. Adams II 60. PLAN: 1. The patient will be discharged when medically cleared. 2. Provide the patient with reality orientation and supportive therapy. 3. The patient was seen on 08/20/2018, this is a late entry. Marty Ribeiro M.D. DR: TOM JOB#: [id number] CC:
--- NOTE | 2018-08-22 05:45 | Progress Note ---
DATE: 08/21/2018 SUBJECTIVE: The patient was in bed, no acute distress. Calm. Feeling sad about relapse. Poor insight into her current condition. MENTAL STATUS EXAMINATION: The patient is alert, oriented to time, self, place, and situation. Mood is dysphoric and anxious. Affect is constricted, congruent with mood. Thought process is concrete. Thought content, no suicidal or homicidal ideation. ASSESSMENT: 1. Alcohol dependence. 2. Anxiety disorder. PLAN: 1. The patient is cleared from psychiatric point of view. . 2. The patient may go back to sober living. 3. Provide the patient with reality orientation and supportive therapy. Marty Ribeiro M.D. DR: TOM JOB#: [id number] CC: QASIM
--- NOTE | 2018-08-27 16:24 | Cardiology Report ---
APPROVED REPORT EKG Measurement Heart [id number] Normal sinus rhythm Normal ECG
--- NOTE | 2018-09-03 12:11 | Discharge Summary ---
Discharge Summary Discharge Summary _ DATE OF ADMISSION: 08/19/2018 DATE OF DISCHARGE: 08/21/2018 DISCHARGED BY: Dr. Merrill Grover CASING BUILDER: Dr. Marty Ribeiro BRIEF HOSPITAL COURSE: Patient is a 33-year-old female, with history of alcoholism, in sober living. Patient to too much of her psychiatric medication as well as alcohol with suicidal attempt. On evaluation at ED, blood pressure was 108/77, pulse rate 96 , RR 18, 99% oxygen saturation. Blood work did not show any leukocytosis. Hemoglobin and hematocrit were stable. Electrolytes were normal. LFTs normal. Serum alcohol level was 266. Urine toxicology screen was negative. Urinalysis was essentially unremarkable. She was noted to have slurring of speech. EKG showed normal sinus rhythm without acute ST or T wave changes. She was noted to have some slight QT prolongation. She was given IV hydration and thiamine. She was then admitted for evaluation of acute toxic encephalopathy. She was given IV hydration. She was placed on folate and multivitamins. She was given benzodiazepines as needed. Psychiatric evaluation was done. Patient denied suicide attempt. She was given reality orientation and supportive therapy. She was cleared by psychiatry to go back to sober living. FINAL DIAGNOSES: Acute toxic encephalopathy, resolved Alcoholism Suicidal ideation Psychiatric disorder Abnormal blood sugar DISPOSITION: Patient was discharged to [facility]. DISCHARGE MEDICATIONS: Refer to Discharge Medication List. DISCHARGE INSTRUCTIONS: Follow-up in a week. I have been assigned to complete a discharge summary on this account, I was not involved with the patient's management.--MARILEE Cheng Jacqueline Robles NP Sep 03, 2018 12:11
== END 2018-08-21 20:38 | disposition home or self-care (01) | DRG 917 ==
LOC: EMR 20:25 → OBSVTOIN 23:35 → 2E 23:35 → EDBEDREQ 08-20 00:07
DX: T43.592A Poisoning by other antipsychotics and neuroleptics, intentional self-harm, initial encounter (principal); G92 Toxic encephalopathy; R45.851 Suicidal ideations; F10.229 Alcohol dependence with intoxication, unspecified; T51.0X2A Toxic effect of ethanol, intentional self-harm, initial encounter; F41.9 Anxiety disorder, unspecified; Z88.1 Allergy status to other antibiotic agents; Z88.0 Allergy status to penicillin; F99 Mental disorder, not otherwise specified; R73.09 Other abnormal glucose
CPT/HCPCS: 36415; 80053; 80178; 80307; 80329; 81003; 81025; 85025; 93005; 96360; 96361; 96365; 96374; 99284

== ENCOUNTER 2018-08-28 05:04 | Emergency (ER) | payer BC, OTHER ==
[~2018-08-28] VITALS: Ht 162.6 cm; Wt 49.9 kg
--- NOTE | 2018-08-28 05:26 | NUR ---
ED Nurse Note: pt walked in c/o manic episode, hx bipolar, pt states "I don't want to be here, I just want to leave." pt denies any SI/HI/VH/AH, vss, resp even and unlabored on RA, will cont monitor. boyfriend at the bedside.
[2018-08-28 05:39] VITALS: BP 111/76
--- NOTE | 2018-08-28 05:53 | Emergency Room Report ---
History of Present Illness General Chief Complaint: Behavioral Complaint Source: Patient, Friend, Medical Record (Alexei Arevalo MD) Present Illness HPI This is a 33-year-old female with a history of alcohol abuse and substance abuse. Also history of bipolar and anxiety. She resided in sober living. She was brought in by a friend who said that she is manic and needs psychiatric evaluation. Patient denies any symptoms. Initially patient refused to be here. He said that for the last week she has been very manic with drinking alcohol abuse. Also with spending a lot of money and hypersexual. Patient admits to drinking alcohol and also using cocaine. She denies suicidal attempts or suicidal thoughts. Been off of her medication for 4 days now. She took Seroquel prior to coming here. She says she does not like to take her Abilify. Stop taking Zoloft. She was just admitted here about a week ago for overdose and was cleared by psychiatrist. (Alexei Arevalo MD) Allergies: Coded Allergies: AMOXICILLIN (Verified Allergy, Unknown, 01/10/17) PENICILLINS (Verified Allergy, Unknown, 01/10/17) Patient History Past Medical History: see triage record, old chart reviewed, psych hx Past Surgical History: other Family History: none Social History: ETOH, drug use, Now: No Immunizations: other Reviewed Nursing Documentation: PMH: Agreed; PSxH: Agreed (Alexei Arevalo MD) Nursing Documentation-PMH Hx Cardiac Problems: No Hx Hypertension: No Hx Pacemaker: No Hx Asthma: No Hx COPD: No Hx Diabetes: No Hx Cancer: No Hx Gastrointestinal Problems: No Hx Dialysis: No Hx Neurological Problems: No Hx Cerebrovascular Accident: No Hx Seizures: No (Alexei Arevalo MD) Review of Systems ENT: Denies: sore throat Cardiovascular: Denies: chest pain, palpitations Gastrointestinal/Abdominal: Denies: nausea, vomiting, diarrhea Musculoskeletal: Denies: back problems Skin: Denies: rash Psychiatric: Reports: prior history, anxiety Neurological: Denies: JASMINE, seizures All Other Systems: negative except mentioned in HPI (Alexei Arevalo MD) Physical Exam Vital Signs Date Time Temp Pulse Resp B/P (MAP) Pulse Ox O2 Delivery O2 Flow Rate FiO2 08/28/18 05:07 98.4 110 18 111/76 (88) 100 Room Air Vitals with tachycardia Sp02 EP Interpretation: reviewed, normal General Appearance: alert/responsive, no apparent distress, non-toxic, other - Is sleepy and calm. Head: normocephalic, atraumatic Eyes: PERRL, EOMI ENT: oropharynx normal Neck: supple/symm/no masses Respiratory: effort normal, no rhonchi, no wheezing Cardiovascular: no murmur, gallop, rub Gastrointestinal: non-tender, no mass, non-distended, no rebound/guarding, normal bowel sounds Musculoskeletal: gait & station normal Neurologic: oriented x3, sensory intact, motor strength/tone normal Skin: no rash, normal palpation (Alexei Arevalo MD) Medical Decision Making Diagnostic Impression: Primary Impression: Alcohol intoxication Qualified Codes: F10.920 - Alcohol use, unspecified with intoxication, uncomplicated Additional Impressions: Substance abuse Behavioral disorder ER Course Patient presents with behavioral. Most likely borderline personality disorder. Her friend states she was very manic but she is calm and sleepy here. I suspect that this may be coming down from her cocaine in her alcohol. No evidence of any withdrawal symptoms. She denies suicidal thoughts or homicidal thought. Will observe her until clinical sobriety and reassess. If patient does not express suicidal thoughts or homicidal thoughts or does not want psychiatric evaluation, will discharge home. I will sign this out to oncoming doctor for reassessment. (Alexei Arevalo MD) ER Course Please refer to the note for history exam and presentation At this time a counselor from [facility] has also presented And patient wants to go to this facility Patient's boyfriend is also at bedside She has good support and are all in agreement patient dispositioned To their care for follow-up at this appropriate facility (Freda Bonds DO) Last Vital Signs Date Time Temp Pulse Resp B/P (MAP) Pulse Ox O2 Delivery O2 Flow Rate FiO2 08/28/18 05:39 110 18 Room Air 08/28/18 05:39 98.4 111/76 100 Status: improved (Alexei Arevalo MD) Status: improved (Freda Bonds DO) Disposition: HOME, SELF-CARE Condition: Stable Patient Instructions: Self-Destructive Behavior Alexei Arevalo MD Aug 28, 2018 05:53 Freda Bonds DO Aug 28, 2018 07:28
--- NOTE | 2018-08-28 06:20 | NUR ---
ED Nurse Note: pt sleeping at this time, no sx distress noted, will cont monitor, safety precautions in place, bed lowest position w/ siderailx2.
[2018-08-28 07:34] VITALS: BP 111/76
--- NOTE | 2018-08-28 07:36 | NUR ---
ED Nurse Note:pt. was cleared for d/c by JARED HERNANDEZ, her rehab family caseworker and boyfriend is here to pick pack worker pt. to take her to drugs rehab, pt. is A/Ox4 ambulating with steady gait, VSS, took all her belongings with her
== END 2018-08-28 07:34 | disposition home or self-care (01) ==
LOC: EMR 05:56
DX: F10.920 Alcohol use, unspecified with intoxication, uncomplicated (principal); F19.10 Other psychoactive substance abuse, uncomplicated; F60.9 Personality disorder, unspecified; F41.9 Anxiety disorder, unspecified; Z88.0 Allergy status to penicillin
CPT/HCPCS: 99282